=== PATIENT | male | born 1955 | race Caucasian/White ===

== ENCOUNTER 2020-10-29 15:14 | Outpatient (REF) | payer MEDICARE, MEDICAID, SELFPAY ==
[2020-10-29 16:32] LABS: MANUAL DIFF FLAG NO
[2020-10-29 16:40] LABS: Basophils Absolute Auto 0.1 X10*3/uL (0.0-0.2); Basophils Percent Auto 0.9 % (0-2); Eosinophils Absolute Auto 0.1 X10*3/uL (0.0-0.4); Eosinophils Percent Auto 1.1 % (0-4); Hematocrit 27.5 % (42-52); Hemoglobin 9.1 g/dl (14.0-18.0); Imm Gran Abs Auto 0.02 X10*3/uL (0.00-0.03); Imm Gran Pct Auto 0.3 % (0.0-0.4); Lymphocytes Absolute Auto 1.2 X10*3/uL (1.2-4.9); Lymphocytes Percent Auto 18.7 % (20-40); Mean Corpuscular HGB Conc 33.1 g/dl (31.0-36.0); Mean Corpuscular Hemoglobin 32.3 pg (27.0-33.0); Mean Corpuscular Volume 97.5 fL (80-98); Mean Platelet Volume 10.9 fL (9.4-12.4); Monocytes Absolute Auto 0.5 X10*3/uL (0.1-1.2); Monocytes Percent Auto 6.9 % (2-11); Neutrophils Absolute Auto 4.7 X10*3/uL (2.0-8.3); Neutrophils Percent Auto 72.1 % (45-73); Platelet Count 191 X10*3/uL (160-400); Red Blood Count 2.82 X10*6/uL (4.60-5.80); White Blood Count 6.5 X10*3/uL (4.8-10.8)
[2020-10-29 16:42] LABS: Appearance Urine CLEAR; Color Urine YELLOW; Glucose Urine UA NEG (NEG); Leukocyte Esterase Urine NEG (NEG); Nitrite Urine NEG (NEG); Specific Gravity - Urine 1.025 (1.005-1.025); Urine Blood 1+ (NEG); Urine Ketones NEG (NEG); Urine Protein 2+ MG/DL (NEG-TRACE)
[2020-10-29 16:53] LABS: Bacteria Urine TRACE /LPF; Squamous Epithelial Cell Urine TRACE /LPF; WBC Urine 0 /HPF (0-4)
[2020-10-29 17:09] LABS: Creatinine Urine 97.59 mg/dL; Protein/Creatinine Ratio, Ur 1.77 (<0.2); Total Protein Urine Random 173 mg/dL (<12)
[2020-10-29 17:11] LABS: Anion Gap 12 (12-20); Blood Urea Nitrogen 19 mg/dL (9-16); Calcium 7.7 mg/dL (8.4-10.2); Carbon Dioxide 23 mmol/L (22-29); Chloride 109 mmol/L (96-108); Estimated Glomerular Filt Rate 33; Phosphorus 3.4 mg/dL (2.7-4.5); Potassium 4.3 mmol/l (3.3-5.1); Sodium 140 mmol/L (135-145)
[2020-10-29 19:14] LABS: Renal w Reflex Lab Use Only Order verified
[2020-10-29 19:17] LABS: Albumin Level 3.2 g/dL (3.5-5.0)
== END 2020-10-29 15:15 | disposition home or self-care (01) ==
LOC: HO.LAB 15:14
PROVIDERS: PCP Internal Medicine; Visit Provider Internal Medicine Nephrology
DX: E11.22 Type 2 diabetes mellitus with diabetic chronic kidney disease (principal); I12.9 Hypertensive chronic kidney disease with stage 1 through stage 4 chronic kidney disease, or unspecified chronic kidney disease; N18.30 Chronic kidney disease, stage 3 unspecified; N17.9 Acute kidney failure, unspecified; R80.9 Proteinuria, unspecified; E78.5 Hyperlipidemia, unspecified; E11.21 Type 2 diabetes mellitus with diabetic nephropathy
CPT/HCPCS: 36415; 80051; 81001; 82040; 82310; 82565; 84100; 84156; 84520; 85025

== ENCOUNTER 2020-11-16 14:03 | Outpatient (REF) | payer MEDICARE, MEDICAID, SELFPAY ==
[2020-11-16 15:11] LABS: Estimated Average Glucose 100 mg/dL; Hemoglobin A1c % 5.1 %
[2020-11-16 15:23] LABS: Anion Gap 15 (12-20); Blood Urea Nitrogen 23 mg/dL (9-16); Carbon Dioxide 20 mmol/L (22-29); Chloride 107 mmol/L (96-108); Cholesterol 222 mg/dL; Estimated Glomerular Filt Rate 30; Glucose Fasting 92 mg/dL (60-99); HDL Cholesterol 44 mg/dL; LDL Cholesterol Calculated 143 mg/dl; Potassium 4.5 mmol/l (3.3-5.1); Sodium 137 mmol/L (135-145); Triglycerides 175 mg/dL
== END 2020-11-16 14:04 | disposition home or self-care (01) ==
LOC: HO.LAB 14:03
PROVIDERS: PCP Psychiatry & Neurology Neurology; Visit Provider Psychiatry & Neurology Neurology
DX: I63.9 Cerebral infarction, unspecified (principal)
CPT/HCPCS: 80051; 80061; 82565; 82947; 83036; 84520

== ENCOUNTER 2020-12-31 10:30 | Outpatient (REF) | payer MEDICARE, MEDICAID, SELFPAY ==
[2020-12-31 11:16] LABS: MANUAL DIFF FLAG NO
[2020-12-31 11:30] LABS: Basophils Absolute Auto 0.1 X10*3/uL (0.0-0.2); Basophils Percent Auto 1.3 % (0-2); Eosinophils Absolute Auto 0.2 X10*3/uL (0.0-0.4); Eosinophils Percent Auto 2.5 % (0-4); Hematocrit 28.1 % (42-52); Hemoglobin 9.2 g/dl (14.0-18.0); Imm Gran Abs Auto 0.02 X10*3/uL (0.00-0.03); Imm Gran Pct Auto 0.3 % (0.0-0.4); Lymphocytes Absolute Auto 1.7 X10*3/uL (1.2-4.9); Lymphocytes Percent Auto 26.1 % (20-40); Mean Corpuscular HGB Conc 32.7 g/dl (31.0-36.0); Mean Corpuscular Hemoglobin 30.9 pg (27.0-33.0); Mean Corpuscular Volume 94.3 fL (80-98); Mean Platelet Volume 10.8 fL (9.4-12.4); Monocytes Absolute Auto 0.4 X10*3/uL (0.1-1.2); Monocytes Percent Auto 6.4 % (2-11); Neutrophils Absolute Auto 4.1 X10*3/uL (2.0-8.3); Neutrophils Percent Auto 63.4 % (45-73); Platelet Count 218 X10*3/uL (160-400); Red Blood Count 2.98 X10*6/uL (4.60-5.80); Red Cell Distribution Width 13.6 % (11.0-16.0); White Blood Count 6.4 X10*3/uL (4.8-10.8)
[2020-12-31 12:06] LABS: Ferritin 262 ng/mL (20-250)
[2020-12-31 12:38] LABS: Vitamin B12 < 146 pg/mL (200-900)
== END 2020-12-31 10:31 | disposition home or self-care (01) ==
LOC: HO.HMGCLDS 10:30
PROVIDERS: PCP Internal Medicine; Visit Provider Internal Medicine
DX: D64.9 Anemia, unspecified (principal); Z00.00 Encounter for general adult medical examination without abnormal findings
CPT/HCPCS: 36415; 82607; 82728; 85025

== ENCOUNTER 2021-08-23 16:01 | Outpatient (REF) | payer MEDICARE, MEDICAID, SELFPAY ==
[2021-08-23 16:59] LABS: Hematocrit 34.5 % (42-52); Hemoglobin 11.2 g/dl (14.0-18.0); Mean Corpuscular HGB Conc 32.5 g/dl (31.0-36.0); Mean Corpuscular Volume 92.5 fL (80-98); Mean Platelet Volume 10.9 fL (9.4-12.4); Platelet Count 167 X10*3/uL (160-400); Red Blood Count 3.73 X10*6/uL (4.60-5.80); Red Cell Distribution Width 14.5 % (11.0-16.0); White Blood Count 8.9 X10*3/uL (4.8-10.8)
[2021-08-23 17:28] LABS: Anion Gap 11 (12-20); Blood Urea Nitrogen 19 mg/dL (9-16); Calcium 8.5 mg/dL (8.4-10.2); Carbon Dioxide 24 mmol/L (22-29); Chloride 113 mmol/L (96-108); Estimated Glomerular Filt Rate 31; Potassium 4.5 mmol/L (3.3-5.1); Sodium 143 mmol/L (135-145)
== END 2021-08-23 16:02 | disposition home or self-care (01) ==
LOC: HO.LAB 16:01
PROVIDERS: PCP Internal Medicine; Visit Provider Internal Medicine Nephrology
DX: I12.9 Hypertensive chronic kidney disease with stage 1 through stage 4 chronic kidney disease, or unspecified chronic kidney disease (principal); N18.32 Chronic kidney disease, stage 3b; N25.81 Secondary hyperparathyroidism of renal origin; E55.9 Vitamin D deficiency, unspecified
CPT/HCPCS: 36415; 80051; 82310; 82565; 84520; 85027

== ENCOUNTER 2021-11-24 15:09 | Outpatient (REF) | payer MEDICARE, MEDICAID, SELFPAY ==
[2021-11-24 16:07] LABS: Blood Urea Nitrogen 22 mg/dL (9-16); Calcium 8.9 mg/dL (8.4-10.2); Estimated Glomerular Filt Rate 29
[2021-11-24 16:26] LABS: Anion Gap 11 (12-20); Carbon Dioxide 20 mmol/L (22-29); Chloride 115 mmol/L (96-108); Potassium 4.4 mmol/L (3.3-5.1); Sodium 142 mmol/L (135-145)
== END 2021-11-24 15:10 | disposition home or self-care (01) ==
LOC: HO.LAB 15:09
PROVIDERS: Absent Provider Internal Medicine Nephrology; PCP Internal Medicine; Visit Provider Internal Medicine
DX: I12.9 Hypertensive chronic kidney disease with stage 1 through stage 4 chronic kidney disease, or unspecified chronic kidney disease (principal); N18.32 Chronic kidney disease, stage 3b; R80.8 Other proteinuria
CPT/HCPCS: 36415; 80051; 82310; 82565; 84520

== ENCOUNTER 2022-05-02 11:56 | Outpatient (REF) | payer MEDICARE, MEDICAID, SELFPAY ==
[2022-05-02 13:36] LABS: MANUAL DIFF FLAG NO
[2022-05-02 13:40] LABS: Basophils Absolute Auto 0.1 X10*3/uL (0.0-0.2); Basophils Percent Auto 0.8 % (0-2); Eosinophils Absolute Auto 0.2 X10*3/uL (0.0-0.4); Eosinophils Percent Auto 3.5 % (0-4); Hematocrit 34.9 % (42.0-52.0); Hemoglobin 11.3 g/dl (14.0-18.0); Imm Gran Abs Auto 0.01 X10*3/uL (0.00-0.03); Imm Gran Pct Auto 0.2 % (0.0-0.4); Lymphocytes Absolute Auto 1.5 X10*3/uL (1.2-4.9); Lymphocytes Percent Auto 23.2 % (20-40); Mean Corpuscular HGB Conc 32.4 g/dl (31.0-36.0); Mean Corpuscular Hemoglobin 31.3 pg (27.0-33.0); Mean Corpuscular Volume 96.7 fL (80.0-98.0); Mean Platelet Volume 11.5 fL (9.4-12.4); Monocytes Absolute Auto 0.5 X10*3/uL (0.1-1.2); Monocytes Percent Auto 7.4 % (2-11); Neutrophils Absolute Auto 4.3 x10*3/uL (2.0-8.3); Neutrophils Percent Auto 64.9 % (45-73); Platelet Count 192 X10*3/uL (160-400); Red Blood Count 3.61 X10*6/uL (4.60-5.80); Red Cell Distribution Width 13.4 % (11.0-16.0); White Blood Count 6.6 X10*3/uL (4.8-10.8)
[2022-05-02 13:55] LABS: Alanine Aminotransferase 10 U/L (0-40); Albumin Level 3.8 g/dL (3.5-5.0); Alkaline Phosphatase 80 U/L (39-117); Anion Gap 13 (12-20); Aspartate Amino Transferase 10 U/L (5-37); Bilirubin Total 0.3 mg/dL (0.0-1.0); Blood Urea Nitrogen 46 mg/dL (9-16); Calcium 8.7 mg/dL (8.4-10.2); Carbon Dioxide 21 mmol/L (22-29); Chloride 112 mmol/L (96-108); Estimated Glomerular Filt Rate 22; Glucose Random 140 mg/dL (60-115); Potassium 5.5 mmol/L (3.3-5.1); Sodium 140 mmol/L (135-145); Total Protein 6.4 g/dL (6.5-8.0)
[2022-05-02 14:05] LABS: Estimated Average Glucose 103 mg/dL; Hemoglobin A1c % 5.2 %
== END 2022-05-02 11:57 | disposition home or self-care (01) ==
LOC: HO.HMGCLDS 11:56
PROVIDERS: PCP Internal Medicine; Visit Provider Internal Medicine
DX: E78.9 Disorder of lipoprotein metabolism, unspecified (principal); N18.9 Chronic kidney disease, unspecified; R79.89 Other specified abnormal findings of blood chemistry; D64.9 Anemia, unspecified; E11.21 Type 2 diabetes mellitus with diabetic nephropathy
CPT/HCPCS: 36415; 80053; 83036; 85025

== ENCOUNTER 2022-06-20 15:54 | Outpatient (REF) | payer MEDICARE, MEDICAID, SELFPAY ==
[2022-06-20 16:53] LABS: Estimated Average Glucose 105 mg/dL; Hemoglobin A1c % 5.3 %
[2022-06-20 17:15] LABS: Alanine Aminotransferase 10 U/L (0-40); Albumin Level 3.9 g/dL (3.5-5.0); Alkaline Phosphatase 73 U/L (39-117); Anion Gap 15 (12-20); Aspartate Amino Transferase 9 U/L (5-37); Bilirubin Total 0.2 mg/dL (0.0-1.0); Blood Urea Nitrogen 36 mg/dL (9-16); Calcium 8.5 mg/dL (8.4-10.2); Carbon Dioxide 21 mmol/L (22-29); Chloride 112 mmol/L (96-108); Estimated Glomerular Filt Rate 22; Glucose Random 118 mg/dL (60-115); Potassium 5.8 mmol/L (3.3-5.1); Sodium 142 mmol/L (135-145); Total Protein 6.6 g/dL (6.5-8.0)
[2022-06-21 07:33] LABS: LDL Cholesterol Direct 109 mg/dL (<100)
== END 2022-06-20 15:55 | disposition home or self-care (01) ==
LOC: HO.LAB 15:54
PROVIDERS: PCP Internal Medicine; Visit Provider Internal Medicine Nephrology
DX: I12.9 Hypertensive chronic kidney disease with stage 1 through stage 4 chronic kidney disease, or unspecified chronic kidney disease (principal); N18.32 Chronic kidney disease, stage 3b; E55.9 Vitamin D deficiency, unspecified; E78.9 Disorder of lipoprotein metabolism, unspecified
CPT/HCPCS: 36415; 80053; 83036; 83721

== ENCOUNTER 2022-09-20 12:46 | Outpatient (REF) | payer MEDICARE, MEDICAID, SELFPAY ==
[2022-09-20 13:04] LABS: MANUAL DIFF FLAG NO
[2022-09-20 13:29] LABS: Basophils Absolute Auto 0.1 X10*3/uL (0.0-0.2); Basophils Percent Auto 0.6 % (0-2); Eosinophils Absolute Auto 0.2 X10*3/uL (0.0-0.4); Eosinophils Percent Auto 1.9 % (0-4); Hematocrit 34.8 % (42.0-52.0); Hemoglobin 11.3 g/dl (14.0-18.0); Imm Gran Abs Auto 0.04 X10*3/uL (0.00-0.03); Imm Gran Pct Auto 0.4 % (0.0-0.4); Lymphocytes Absolute Auto 1.4 X10*3/uL (1.2-4.9); Lymphocytes Percent Auto 13.8 % (20-40); Mean Corpuscular HGB Conc 32.5 g/dl (31.0-36.0); Mean Corpuscular Hemoglobin 32.2 pg (27.0-33.0); Mean Corpuscular Volume 99.1 fL (80.0-98.0); Mean Platelet Volume 10.7 fL (9.4-12.4); Monocytes Absolute Auto 0.6 X10*3/uL (0.1-1.2); Monocytes Percent Auto 6.2 % (2-11); Neutrophils Absolute Auto 7.8 x10*3/uL (2.0-8.3); Neutrophils Percent Auto 77.1 % (45-73); Platelet Count 168 X10*3/uL (160-400); Red Blood Count 3.51 X10*6/uL (4.60-5.80); Red Cell Distribution Width 14.1 % (11.0-16.0); White Blood Count 10.1 X10*3/uL (4.8-10.8)
[2022-09-20 13:54] LABS: Anion Gap 17 (12-20); Blood Urea Nitrogen 38 mg/dL (9-16); Calcium 8.5 mg/dL (8.4-10.2); Carbon Dioxide 18 mmol/L (22-29); Chloride 112 mmol/L (96-108); Estimated Glomerular Filt Rate 24; Iron 50 mcg/dL (45-160); Percent Iron Saturation 21 % (15-50); Sodium 142 mmol/L (135-145); Total Iron Binding Capacity 233 mcg/dL (228-428); Unsaturated Iron Binding 183 ug/dL
[2022-09-20 14:15] LABS: Ferritin 447 ng/mL (20-250)
== END 2022-09-20 12:47 | disposition home or self-care (01) ==
LOC: HO.LAB 12:46
PROVIDERS: PCP Internal Medicine; Visit Provider Internal Medicine Nephrology
DX: N18.4 Chronic kidney disease, stage 4 (severe) (principal); D63.1 Anemia in chronic kidney disease
CPT/HCPCS: 36415; 80051; 82310; 82565; 82728; 83540; 84520; 85025

== ENCOUNTER 2022-12-19 09:35 | Outpatient (REF) | payer MEDICARE, MEDICAID, SELFPAY ==
[2022-12-19 10:33] LABS: Basophils Absolute Auto 0.1 X10*3/uL (0.0-0.2); Basophils Percent Auto 0.8 % (0-2); Eosinophils Absolute Auto 0.2 X10*3/uL (0.0-0.4); Eosinophils Percent Auto 2.8 % (0-4); Hematocrit 33.5 % (42.0-52.0); Imm Gran Abs Auto 0.01 X10*3/uL (0.00-0.03); Imm Gran Pct Auto 0.1 % (0.0-0.4); Lymphocytes Absolute Auto 1.8 X10*3/uL (1.2-4.9); Lymphocytes Percent Auto 22.6 % (20-40); MANUAL DIFF FLAG SCAN; Mean Corpuscular HGB Conc 32.8 g/dl (31.0-36.0); Mean Corpuscular Hemoglobin 30.9 pg (27.0-33.0); Mean Corpuscular Volume 94.1 fL (80.0-98.0); Monocytes Absolute Auto 0.6 X10*3/uL (0.1-1.2); Monocytes Percent Auto 7.1 % (2-11); Neutrophils Absolute Auto 5.3 x10*3/uL (2.0-8.3); Neutrophils Percent Auto 66.6 % (45-73); PLT CLUMP 1; Red Blood Count 3.56 X10*6/uL (4.60-5.80); Red Cell Distribution Width 13.1 % (11.0-16.0); SCAN SMEAR FLAG 1
[2022-12-19 10:53] LABS: Platelet Count 156 X10*3/uL (160-400); White Blood Count 7.9 X10*3/uL (4.8-10.8)
[2022-12-19 10:54] LABS: SLIDE REVIEW VERIFIED
[2022-12-19 11:18] LABS: Anion Gap 14 (12-20); Blood Urea Nitrogen 34 mg/dL (9-16); Calcium 8.3 mg/dL (8.4-10.2); Carbon Dioxide 19 mmol/L (22-29); Chloride 114 mmol/L (96-108); Estimated Glomerular Filt Rate 24; Iron 63 mcg/dL (45-160); Percent Iron Saturation 33 % (15-50); Phosphorus 3.1 mg/dL (2.7-4.5); Potassium 4.1 mmol/L (3.3-5.1); Sodium 143 mmol/L (135-145); Total Iron Binding Capacity 189 mcg/dL (228-428); Unsaturated Iron Binding 126 ug/dL; Uric Acid 5.8 mg/dL (3.4-7.0)
[2022-12-19 11:21] LABS: Vitamin D 25-OH Total 27.8 ng/mL (>30)
[2022-12-20 17:44] LABS: Calcium (PTHI) 8.4 mg/dL (8.6-10.3); PTHI 257 pg/mL (16-77)
== END 2022-12-19 09:36 | disposition home or self-care (01) ==
LOC: HO.LAB 09:35
PROVIDERS: PCP Internal Medicine; Visit Provider Internal Medicine Nephrology
DX: N18.4 Chronic kidney disease, stage 4 (severe) (principal)
CPT/HCPCS: 36415; 80051; 82306; 82310; 82565; 83540; 83970; 84100; 84520; 84550; 85025

== ENCOUNTER 2023-06-29 15:03 | Outpatient (REF) | payer MEDICARE, MEDICAID, SELFPAY ==
[2023-06-29 15:35] LABS: MANUAL DIFF FLAG NO
[2023-06-29 16:37] LABS: Basophils Absolute Auto 0.1 X10*3/uL (0.0-0.2); Basophils Percent Auto 0.8 % (0-2); Eosinophils Absolute Auto 0.2 X10*3/uL (0.0-0.4); Eosinophils Percent Auto 2.6 % (0-4); Hematocrit 36.2 % (42.0-52.0); Imm Gran Abs Auto 0.02 X10*3/uL (0.00-0.03); Imm Gran Pct Auto 0.3 % (0.0-0.4); Lymphocytes Absolute Auto 1.1 X10*3/uL (1.2-4.9); Lymphocytes Percent Auto 16.5 % (20-40); Mean Corpuscular HGB Conc 33.1 g/dl (31.0-36.0); Mean Corpuscular Hemoglobin 30.8 pg (27.0-33.0); Mean Corpuscular Volume 93.1 fL (80.0-98.0); Mean Platelet Volume 11.4 fL (9.4-12.4); Monocytes Absolute Auto 0.6 X10*3/uL (0.1-1.2); Monocytes Percent Auto 9.4 % (2-11); Neutrophils Absolute Auto 4.7 x10*3/uL (2.0-8.3); Neutrophils Percent Auto 70.4 % (45-73); Platelet Count 205 X10*3/uL (160-400); Red Blood Count 3.89 X10*6/uL (4.60-5.80); Red Cell Distribution Width 13.4 % (11.0-16.0); White Blood Count 6.6 X10*3/uL (4.8-10.8)
[2023-06-29 17:16] LABS: Alanine Aminotransferase 5 U/L (0-40); Albumin Level 3.8 g/dL (3.5-5.0); Alkaline Phosphatase 87 U/L (39-117); Aspartate Amino Transferase 12 U/L (5-37); Bilirubin Direct < 0.2 mg/dL (0.0-0.5); Bilirubin Total 0.2 mg/dL (0.0-1.0); Cholesterol 235 mg/dL; HDL Cholesterol 29 mg/dL; LDL Cholesterol Calculated 151 mg/dl; Total Protein 7.2 g/dL (6.5-8.0); Triglycerides 277 mg/dL
[2023-06-29 17:17] LABS: Anion Gap 12 (12-20); Blood Urea Nitrogen 23 mg/dL (9-16); Carbon Dioxide 20 mmol/L (22-29); Chloride 112 mmol/L (96-108); Estimated Glomerular Filt Rate 24; Iron 70 mcg/dL (45-160); Percent Iron Saturation 38 % (15-50); Potassium 4.6 mmol/L (3.3-5.1); Sodium 139 mmol/L (135-145); Total Iron Binding Capacity 185 mcg/dL (228-428); Unsaturated Iron Binding 115 ug/dL
[2023-06-30 03:22] LABS: Estimated Average Glucose 100 mg/dL; Hemoglobin A1c % 5.1 %
== END 2023-06-29 15:04 | disposition home or self-care (01) ==
LOC: HO.LAB 15:03
PROVIDERS: Internal Medicine; Visit Provider Internal Medicine Nephrology
DX: I12.9 Hypertensive chronic kidney disease with stage 1 through stage 4 chronic kidney disease, or unspecified chronic kidney disease (principal); E13.22 Other specified diabetes mellitus with diabetic chronic kidney disease; N18.4 Chronic kidney disease, stage 4 (severe); D63.1 Anemia in chronic kidney disease; E78.9 Disorder of lipoprotein metabolism, unspecified
CPT/HCPCS: 36415; 80051; 80061; 80076; 82310; 82565; 83036; 83540; 84520; 85025

== ENCOUNTER 2023-10-30 11:22 | Outpatient (REF) | payer MEDICARE, MEDICAID, SELFPAY ==
[2023-10-30 11:40] LABS: MANUAL DIFF FLAG NO
[2023-10-30 11:47] LABS: Basophils Absolute Auto 0.1 X10*3/uL (0.0-0.2); Basophils Percent Auto 0.8 % (0-2); Eosinophils Absolute Auto 0.2 X10*3/uL (0.0-0.4); Eosinophils Percent Auto 3.4 % (0-4); Hematocrit 36.7 % (42.0-52.0); Hemoglobin 11.8 g/dl (14.0-18.0); Imm Gran Abs Auto 0.02 X10*3/uL (0.00-0.03); Imm Gran Pct Auto 0.3 % (0.0-0.4); Lymphocytes Absolute Auto 1.6 X10*3/uL (1.2-4.9); Lymphocytes Percent Auto 21.9 % (20-40); Mean Corpuscular HGB Conc 32.2 g/dl (31.0-36.0); Mean Corpuscular Hemoglobin 30.8 pg (27.0-33.0); Mean Corpuscular Volume 95.8 fL (80.0-98.0); Mean Platelet Volume 10.4 fL (9.4-12.4); Monocytes Absolute Auto 0.5 X10*3/uL (0.1-1.2); Monocytes Percent Auto 6.6 % (2-11); Neutrophils Absolute Auto 4.8 x10*3/uL (2.0-8.3); Platelet Count 220 X10*3/uL (160-400); Red Blood Count 3.83 X10*6/uL (4.60-5.80); Red Cell Distribution Width 12.9 % (11.0-16.0); White Blood Count 7.1 X10*3/uL (4.8-10.8)
[2023-10-30 12:03] LABS: Parathyroid Hormone Intact 229.7 pg/mL (8.7-77.1)
[2023-10-30 12:14] LABS: Anion Gap 11 (12-20); Blood Urea Nitrogen 26 mg/dL (9-16); Calcium 8.6 mg/dL (8.4-10.2); Carbon Dioxide 21 mmol/L (22-29); Chloride 113 mmol/L (96-108); Estimated Glomerular Filt Rate 25; Iron 59 mcg/dL (45-160); Percent Iron Saturation 33 % (15-50); Potassium 4.6 mmol/L (3.3-5.1); Sodium 140 mmol/L (135-145); Total Iron Binding Capacity 180 mcg/dL (228-428); Unsaturated Iron Binding 121 ug/dL
[2023-10-30 12:17] LABS: Ferritin 733 ng/mL (20-250)
== END 2023-10-30 11:23 | disposition home or self-care (01) ==
LOC: HO.LAB 11:22
PROVIDERS: PCP Internal Medicine; Visit Provider Internal Medicine Nephrology
DX: N18.4 Chronic kidney disease, stage 4 (severe) (principal)
CPT/HCPCS: 36415; 80051; 82310; 82565; 82728; 83540; 83970; 84520; 85025

== ENCOUNTER 2023-10-31 13:33 | Outpatient (AMB) | payer MEDICARE, SELFPAY ==
--- NOTE | 2023-10-31 13:49 | HO.NEPHOV_ITS ---
HPI HPI Comments History of Present Illness Details I had the privilege of seeing Adalberto in follow-up of his chronic kidney disease, hypertension, proteinuria as well as secondary hyperparathyroidism. He has been compliant with potassium lowering medications. His serum creatinine has been fairly stable. He tries to minimize sodium intake in the diet. His blood pressure has been good at home. He denies any nausea, vomiting, diarrhea, chest pain, shortness of breath, proximal nocturnal dyspnea, orthopnea, pedal edema. He has no urinary symptoms . He has no orthostasis. He has not had any medication changes or hospitalizations recently. [facility] Medical History CVA (cerebral vascular accident) Diabetes Renal insufficiency Surgical History H/O eye surgery Family History Father Lung cancer Maternal Grandmother Ovarian cancer Social History Housing: House Alcohol intake: former Patient Tobacco Use Status: Current everyday Tobacco user Tobacco use type: Cigarette e-Cigarette/Vaping Use: Never Used Substance Use Type: Marijuana service: No Current occupational status: retired Cognitive needs: No Hearing needs: No Vision needs: No Vital Signs 10/31/23 13:52 10/31/23 14:30 Height 5 ft 9 in Weight 143 lb 8 oz BMI 21.2 BP 160/70 H 120/70 Blood Pressure Location Rt brachial Position Sitting Pulse 94 Pulse Source Pulse Oximeter Pulse Oximetry (%) 98 Oxygen Delivery Method Room Air Physical Exam Vital Signs: Last Vital Signs Pulse 94 10/31/23 13:52 BP 120/70 10/31/23 14:30 Pulse Ox 98 10/31/23 13:52 Oxygen Delivery Method Room Air 10/31/23 13:52 BMI result Body Mass Index 21.2 Const General: comfortable and no acute distress Orientation/consciousness: patient oriented x3 HEENT Head: Yes normocephalic Mouth: Normal oral and palatal mucosa present Eyes EOM: EOMs intact bilaterally Neck Neck: Yes supple Resp Auscultation: clear to auscultation bilaterally Cardio Jugular venous distension: no JVD Rate: regular rate GI Palpation (GI): Soft to palpation Auscultation: normal bowel sounds General: Yes no CVA tenderness Back/Spine/Pelvis Back: no CVA tenderness Skin General skin exam: no rashes or lesions noted Neuro General: patient oriented x3 and moves all extremities Extrem General: Yes no pedal edema Assessment & Plan Assessment & Plan (1) Hyperkalemia: Code(s): E87.5 - Hyperkalemia (2) CKD (chronic kidney disease) stage 4, GFR 15-29 ml/min: Code(s): N18.4 - Chronic kidney disease, stage 4 (severe) (3) Hypertension, essential: Code(s): I10 - Essential (primary) hypertension (4) Secondary hyperparathyroidism: Code(s): N25.81 - Secondary hyperparathyroidism of renal origin (5) Anemia in chronic kidney disease: Code(s): N18.9 - Chronic kidney disease, unspecified; D63.1 - Anemia in chronic kidney disease Qualifiers: Chronic kidney disease stage: stage 4 (severe) Qualified Code(s): N18.4 - Chronic kidney disease, stage 4 (severe); D63.1 - Anemia in chronic kidney disease Plan 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 He is not on any Iker inhibitor due to recurrent FLOR and hyperkalemia in the past. He avoids nonsteroidal anti-inflammatory medications and maintain good hydration. He can continue taking his Kionex 15 g 2 times a week. His ultrasounds in the past and been unremarkable. He has tolerated statins. Can continue with nifedipine 120 mg daily. I asked him to increase his vitamin-D to 2000 units daily. Does not need any Procrit now. I did not make any other medication changes today. He will be a candidate for [employer] / [employer] if his insurance permits. We agreed to discuss about it to the next visit. All his questions and concerns were addressed. Time spent for retrieving data, documentation and patient encounter 27 minutes. Follow-up given. Medications: New sodium polystyrene sulfonate 15 grams orally twice a week; 30 days 150 grams 3RF Coding Level of Care Code Est Pt Level 4 (57137) Diagnoses Hyperkalemia E87.5 CKD (chronic kidney disease) stage 4, GFR 15-29 ml/min N18.4 Hypertension, essential I10 Secondary hyperparathyroidism N25.81 Anemia in stage 4 chronic kidney disease N18.4; D63.1 Chronic kidney disease stage: stage 4 (severe) Results Reviewed Nephrology Results: Hgb 11.8 g/dl (14.0-18.0) L 10/30/23 WBC 7.1 X10*3/uL (4.8-10.8) 10/30/23 Plt Count 220 X10*3/uL (160-400) 10/30/23 Sodium 140 mmol/L (135-145) 10/30/23 Potassium 4.6 mmol/L (3.3-5.1) 10/30/23 Chloride 113 mmol/L (96-108) H 10/30/23 Carbon Dioxide 21 mmol/L (22-29) L 10/30/23 BUN 26 mg/dL (9-16) H 10/30/23 Creatinine 2.57 mg/dL (0.5-1.4) H 10/30/23 Calcium 8.6 mg/dL (8.4-10.2) 10/30/23 Phosphorus 3.1 mg/dL (2.7-4.5) 12/19/22 PTH Intact 229.7 pg/mL (8.7-77.1) H 10/30/23
[2023-10-31 13:52] VITALS: BP 160/70; PULSE 94; O2SAT 98; BMI 21.2
[2023-10-31 14:30] VITALS: BP 120/70
== END 2023-10-31 14:33 | disposition home or self-care (01) ==
PROVIDERS: PCP Internal Medicine; Visit Provider Internal Medicine Nephrology
DX: I12.9 Hypertensive chronic kidney disease with stage 1 through stage 4 chronic kidney disease, or unspecified chronic kidney disease (principal); N18.4 Chronic kidney disease, stage 4 (severe); N25.81 Secondary hyperparathyroidism of renal origin; E87.5 Hyperkalemia; D63.1 Anemia in chronic kidney disease
CPT/HCPCS: 99214

== ENCOUNTER → 2023-10-31 13:33 | Outpatient (BNVA) | payer MEDICARE, OTHER, SELFPAY | PROVIDERS: PCP Internal Medicine; Visit Provider Internal Medicine Nephrology | DX: I12.9 Hypertensive chronic kidney disease with stage 1 through stage 4 chronic kidney disease, or unspecified chronic kidney disease (principal); N18.4 Chronic kidney disease, stage 4 (severe); D63.1 Anemia in chronic kidney disease; N25.81 Secondary hyperparathyroidism of renal origin; E87.5 Hyperkalemia | CPT/HCPCS: 99212 ==

== ENCOUNTER 2024-02-04 15:00 | Outpatient (REF) | payer MEDICARE, SELFPAY ==
[2024-02-04 15:35] LABS: MANUAL DIFF FLAG NO
[2024-02-04 15:55] LABS: Basophils Absolute Auto 0.1 X10*3/uL (0.0-0.2); Basophils Percent Auto 0.9 % (0-2); Eosinophils Absolute Auto 0.2 X10*3/uL (0.0-0.4); Hematocrit 35.1 % (42.0-52.0); Hemoglobin 11.3 g/dl (14.0-18.0); Imm Gran Abs Auto 0.02 X10*3/uL (0.00-0.03); Imm Gran Pct Auto 0.3 % (0.0-0.4); Lymphocytes Absolute Auto 1.5 X10*3/uL (1.2-4.9); Mean Corpuscular HGB Conc 32.2 g/dl (31.0-36.0); Mean Corpuscular Hemoglobin 30.6 pg (27.0-33.0); Mean Corpuscular Volume 95.1 fL (80.0-98.0); Mean Platelet Volume 10.8 fL (9.4-12.4); Monocytes Absolute Auto 0.4 X10*3/uL (0.1-1.2); Monocytes Percent Auto 6.3 % (2-11); Neutrophils Absolute Auto 4.8 x10*3/uL (2.0-8.3); Neutrophils Percent Auto 68.5 % (45-73); Platelet Count 204 X10*3/uL (160-400); Red Blood Count 3.69 X10*6/uL (4.60-5.80); Red Cell Distribution Width 13.4 % (11.0-16.0)
[2024-02-04 16:48] LABS: Parathyroid Hormone Intact 268.1 pg/mL (8.7-77.1)
[2024-02-04 16:51] LABS: Anion Gap 12 (12-20); Blood Urea Nitrogen 30 mg/dL (9-16); Calcium 8.5 mg/dL (8.4-10.2); Carbon Dioxide 21 mmol/L (22-29); Chloride 114 mmol/L (96-108); Estimated Glomerular Filt Rate 27; Iron 70 mcg/dL (45-160); Percent Iron Saturation 37 % (15-50); Phosphorus 2.8 mg/dL (2.7-4.5); Potassium 4.7 mmol/L (3.3-5.1); Sodium 142 mmol/L (135-145); Total Iron Binding Capacity 187 mcg/dL (228-428); Unsaturated Iron Binding 117 ug/dL
[2024-02-04 17:08] LABS: Ferritin 600 ng/mL (20-250); Vitamin D 25-OH Total 34.9 ng/mL (>30)
== END 2024-02-04 15:01 | disposition home or self-care (01) ==
LOC: HO.LAB 15:00
PROVIDERS: PCP Internal Medicine; Visit Provider Internal Medicine Nephrology
DX: N18.4 Chronic kidney disease, stage 4 (severe) (principal); D63.1 Anemia in chronic kidney disease; N25.81 Secondary hyperparathyroidism of renal origin
CPT/HCPCS: 36415; 80051; 82306; 82310; 82565; 82728; 83540; 83970; 84100; 84520; 85025

== ENCOUNTER 2024-02-06 13:42 | Outpatient (AMB) | payer MEDICARE, SELFPAY ==
[2024-02-06 13:44] VITALS: BP 130/60; PULSE 84; O2SAT 99; BMI 20.9
--- NOTE | 2024-02-06 13:44 | HO.NEPHOV_ITS ---
HPI HPI Comments History of Present Illness Details I had the privilege of seeing Adalberto in follow-up of his chronic kidney disease, hypertension, proteinuria as well as secondary hyperparathyroidism. He has been compliant with potassium lowering medications. His serum creatinine has been fairly stable. He tries to minimize sodium intake in the diet. His blood pressure has been good at home. He denies any nausea, vomiting, diarrhea, chest pain, shortness of breath, proximal nocturnal dyspnea, orthopnea, pedal edema. He has no urinary symptoms . He has no orthostasis. He has not had any medication changes or hospitalizations recently. [facility] Medical History CVA (cerebral vascular accident) Diabetes Renal insufficiency Surgical History H/O eye surgery Family History Father Lung cancer Maternal Grandmother Ovarian cancer Social History Housing: House Alcohol intake: former Patient Tobacco Use Status: Current everyday Tobacco user Tobacco use type: Cigarette e-Cigarette/Vaping Use: Never Used Substance Use Type: Marijuana service: No Current occupational status: retired Cognitive needs: No Hearing needs: No Vision needs: No Vital Signs 02/06/24 13:44 Height 5 ft 9 in Weight 141 lb 8 oz BMI 20.9 BP 130/60 Blood Pressure Location Rt brachial Position Sitting Pulse 84 Pulse Source Pulse Oximeter Pulse Oximetry (%) 99 Oxygen Delivery Method Room Air Physical Exam Vital Signs: Last Vital Signs Pulse 84 02/06/24 13:44 BP 158/60 H 02/06/24 13:44 Pulse Ox 99 02/06/24 13:44 Oxygen Delivery Method Room Air 02/06/24 13:44 BMI result Body Mass Index 20.9 Const General: comfortable and no acute distress Orientation/consciousness: patient oriented x3 HEENT Head: Yes normocephalic Mouth: Normal oral and palatal mucosa present Eyes EOM: EOMs intact bilaterally Neck Neck: Yes supple Resp Auscultation: clear to auscultation bilaterally Cardio Jugular venous distension: no JVD Rate: regular rate GI Palpation (GI): Soft to palpation Auscultation: normal bowel sounds General: Yes no CVA tenderness Back/Spine/Pelvis Back: no CVA tenderness Skin General skin exam: no rashes or lesions noted Neuro General: patient oriented x3 and moves all extremities Extrem General: Yes no pedal edema Assessment & Plan Assessment & Plan (1) CKD (chronic kidney disease) stage 4, GFR 15-29 ml/min: Code(s): N18.4 - Chronic kidney disease, stage 4 (severe) (2) Hyperkalemia: Code(s): E87.5 - Hyperkalemia (3) Secondary hyperparathyroidism: Code(s): N25.81 - Secondary hyperparathyroidism of renal origin (4) Anemia in chronic kidney disease: Code(s): N18.9 - Chronic kidney disease, unspecified; D63.1 - Anemia in chronic kidney disease Qualifiers: Chronic kidney disease stage: stage 4 (severe) Qualified Code(s): N18.4 - Chronic kidney disease, stage 4 (severe); D63.1 - Anemia in chronic kidney disease Plan 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 He is not on any Iker inhibitor due to recurrent FLOR and hyperkalemia in the past. He avoids nonsteroidal anti-inflammatory medications and maintain good hydration. He can continue taking his Kionex 15 g every other day. His ultrasounds in the past and been unremarkable. He has tolerated statins. Can continue with nifedipine 120 mg daily. I started him on calcitriol 0.25 mch every other day.. Does not need any Procrit now. I did not make any other medication changes today. He will be a candidate for [employer] / [employer] if his insurance permits. We agreed to discuss about it to the next visit. All his questions and concerns were addressed. Orders: Orders Creatinine Today D63.1 - Anemia in chronic kidney disease, E87.5 - Hyperkalemia, N18.4 - Chronic kidney disease, stage 4 (severe), N18.9 - Chronic kidney disease, unspecified, N25.81 - Secondary hyperparathyroidism of renal origin Parathyroid Hormone Intact 3 Months D63.1 - Anemia in chronic kidney disease, E87.5 - Hyperkalemia, N18.4 - Chronic kidney disease, stage 4 (severe), N18.9 - Chronic kidney disease, unspecified, N25.81 - Secondary hyperparathyroidism of renal origin Complete Blood Count Auto Diff 3 Months D63.1 - Anemia in chronic kidney disease, E87.5 - Hyperkalemia, N18.4 - Chronic kidney disease, stage 4 (severe), N18.9 - Chronic kidney disease, unspecified, N25.81 - Secondary hyperparathyroidism of renal origin Blood Urea Nitrogen 3 Months D63.1 - Anemia in chronic kidney disease, E87.5 - Hyperkalemia, N18.4 - Chronic kidney disease, stage 4 (severe), N18.9 - Chronic kidney disease, unspecified, N25.81 - Secondary hyperparathyroidism of renal origin Electrolytes 3 Months D63.1 - Anemia in chronic kidney disease, E87.5 - Hyperkalemia, N18.4 - Chronic kidney disease, stage 4 (severe), N18.9 - Chronic kidney disease, unspecified, N25.81 - Secondary hyperparathyroidism of renal origin Calcium 3 Months D63.1 - Anemia in chronic kidney disease, E87.5 - Hyperkalemia, N18.4 - Chronic kidney disease, stage 4 (severe), N18.9 - Chronic kidney disease, unspecified, N25.81 - Secondary hyperparathyroidism of renal origin Phosphorus 3 Months D63.1 - Anemia in chronic kidney disease, E87.5 - Hyperkalemia, N18.4 - Chronic kidney disease, stage 4 (severe), N18.9 - Chronic kidney disease, unspecified, N25.81 - Secondary hyperparathyroidism of renal origin Medications: New calcitriol a 0.25 mcg PO 3XW 13 caps 5RF 30 days sodium polystyrene sulfonate 15 grams PO Q OTHER DAY 453.6 grams 4RF 90 days Discontinued sodium polystyrene sulfonate Discontinued Reason: Doctor's Order 15 grams orally twice a week; 30 days 150 grams 3RF Coding Level of Care Code Est Pt Level 4 (82568) Diagnoses CKD (chronic kidney disease) stage 4, GFR 15-29 ml/min N18.4 Hyperkalemia E87.5 Secondary hyperparathyroidism N25.81 Anemia in stage 4 chronic kidney disease N18.4; D63.1 Chronic kidney disease stage: stage 4 (severe) Results Reviewed Nephrology Results: Hgb 11.3 g/dl (14.0-18.0) L 02/04/24 WBC 7.0 X10*3/uL (4.8-10.8) 24 Plt Count 204 X10*3/uL (160-400) 02/04/24 Sodium 142 mmol/L (135-145) 02/04/24 Potassium 4.7 mmol/L (3.3-5.1) 02/04/24 Chloride 114 mmol/L (96-108) H 02/04/24 Carbon Dioxide 21 mmol/L (22-29) L 02/04/24 BUN 30 mg/dL (9-16) H 02/04/24 Creatinine 2.38 mg/dL (0.5-1.4) H 02/04/24 Calcium 8.5 mg/dL (8.4-10.2) 02/04/24 Phosphorus 2.8 mg/dL (2.7-4.5) 02/04/24 PTH Intact 268.1 pg/mL (8.7-77.1) H 02/04/24
== END 2024-02-06 14:26 | disposition home or self-care (01) ==
PROVIDERS: PCP Internal Medicine; Visit Provider Internal Medicine Nephrology
DX: N18.4 Chronic kidney disease, stage 4 (severe) (principal); E87.5 Hyperkalemia; N25.81 Secondary hyperparathyroidism of renal origin; D63.1 Anemia in chronic kidney disease
CPT/HCPCS: 99214

== ENCOUNTER → 2024-02-06 13:42 | Outpatient (BNVA) | payer MEDICARE, SELFPAY | PROVIDERS: PCP Internal Medicine; Visit Provider Internal Medicine Nephrology | DX: N18.4 Chronic kidney disease, stage 4 (severe) (principal); E78.5 Hyperlipidemia, unspecified | CPT/HCPCS: 99212 ==

== ENCOUNTER 2024-05-05 12:48 | Outpatient (REF) | payer MEDICARE, SELFPAY ==
[2024-05-05 13:04] LABS: MANUAL DIFF FLAG NO
[2024-05-05 13:43] LABS: Basophils Absolute Auto 0.1 X10*3/uL (0.0-0.2); Basophils Percent Auto 0.8 % (0-2); Eosinophils Absolute Auto 0.2 X10*3/uL (0.0-0.4); Eosinophils Percent Auto 3.1 % (0-4); Hematocrit 35.8 % (42.0-52.0); Hemoglobin 11.9 g/dl (14.0-18.0); Imm Gran Abs Auto 0.02 X10*3/uL (0.00-0.03); Imm Gran Pct Auto 0.3 % (0.0-0.4); Lymphocytes Absolute Auto 1.6 X10*3/uL (1.2-4.9); Lymphocytes Percent Auto 22.2 % (20-40); Mean Corpuscular HGB Conc 33.2 g/dl (31.0-36.0); Mean Corpuscular Hemoglobin 31.4 pg (27.0-33.0); Mean Corpuscular Volume 94.5 fL (80.0-98.0); Monocytes Absolute Auto 0.5 X10*3/uL (0.1-1.2); Monocytes Percent Auto 6.5 % (2-11); Neutrophils Absolute Auto 4.8 x10*3/uL (2.0-8.3); Neutrophils Percent Auto 67.1 % (45-73); Platelet Count 190 X10*3/uL (160-400); Red Blood Count 3.79 X10*6/uL (4.60-5.80); Red Cell Distribution Width 13.3 % (11.0-16.0); White Blood Count 7.2 X10*3/uL (4.8-10.8)
[2024-05-05 14:12] LABS: Anion Gap 11 (12-20); Blood Urea Nitrogen 29 mg/dL (9-16); Carbon Dioxide 23 mmol/L (22-29); Chloride 113 mmol/L (96-108); Estimated Glomerular Filt Rate 23; Potassium 4.9 mmol/L (3.3-5.1); Sodium 142 mmol/L (135-145)
[2024-05-05 14:26] LABS: Parathyroid Hormone Intact 254.4 pg/mL (8.7-77.1)
== END 2024-05-05 12:49 | disposition home or self-care (01) ==
LOC: HO.LAB 12:48
PROVIDERS: PCP Internal Medicine; Visit Provider Internal Medicine Nephrology
DX: N18.9 Chronic kidney disease, unspecified (principal); D63.1 Anemia in chronic kidney disease; N25.81 Secondary hyperparathyroidism of renal origin; E87.5 Hyperkalemia; N18.4 Chronic kidney disease, stage 4 (severe)
CPT/HCPCS: 36415; 80051; 82310; 82565; 83970; 84100; 84520; 85025

== ENCOUNTER 2024-05-07 13:43 | Outpatient (AMB) | payer MEDICARE, MEDICAID, SELFPAY ==
--- NOTE | 2024-05-07 13:44 | HO.NEPHOV ---
Vital Signs 05/07/24 13:45 Height 5 ft 9 in Weight 141 lb 4 oz BMI 20.9 BP 130/80 Blood Pressure Location Rt brachial Position Sitting Pulse 86 Pulse Source Pulse Oximeter Pulse Oximetry (%) 96 Oxygen Delivery Method Room Air Intake Visit Reasons: Anemia in chronic kidney disease/ 3 MO FU Occupational Health Nurse Manager Required: No Accompanied by: Self / Same As Patient Allergies No Known Allergies Allergy (Verified 05/07/24 13:47) HPI Comments Details: I had the privilege of seeing Adalberto in follow-up of his chronic kidney disease, hypertension, proteinuria as well as secondary hyperparathyroidism. He has been compliant with potassium lowering medications. His serum creatinine has been fairly stable. He tries to minimize sodium intake in the diet. His blood pressure has been good at home. He denies any nausea, vomiting, diarrhea, chest pain, shortness of breath, proximal nocturnal dyspnea, orthopnea, pedal edema. He has no urinary symptoms . He has no orthostasis. He has not had any medication changes or hospitalizations recently. [facility] Medical History CVA (cerebral vascular accident) Diabetes Renal insufficiency Surgical History H/O eye surgery Family History Father Lung cancer Maternal Grandmother Ovarian cancer Social History Housing: House Alcohol intake: former Patient Tobacco Use Status: Current everyday Tobacco user Tobacco use type: Cigarette e-Cigarette/Vaping Use: Never Used Substance Use Type: Marijuana service: No Current occupational status: retired Cognitive needs: No Hearing needs: No Vision needs: No Review of Systems Const All systems reviewed & are unremarkable except as noted in HPI and below Physical Exam Vital Signs: Last Vital Signs Pulse 86 05/07/24 13:45 BP 130/80 05/07/24 13:45 Pulse Ox 96 05/07/24 13:45 Oxygen Delivery Method Room Air 05/07/24 13:45 BMI result Body Mass Index 20.9 Const General: comfortable and no acute distress Orientation/consciousness: patient oriented x3 HEENT Head: Yes normocephalic Mouth: Normal oral and palatal mucosa present Eyes EOM: EOMs intact bilaterally Neck Neck: Yes supple Resp Auscultation: clear to auscultation bilaterally Cardio Jugular venous distension: no JVD Rate: regular rate GI Palpation (GI): Soft to palpation Auscultation: normal bowel sounds General: Yes no CVA tenderness Back/Spine/Pelvis Back: no CVA tenderness Skin General skin exam: no rashes or lesions noted Neuro General: patient oriented x3 and moves all extremities Extrem General: Yes no pedal edema Results Reviewed Nephrology Results: Hgb 11.9 g/dl (14.0-18.0) L 05/05/24 WBC 7.2 X10*3/uL (4.8-10.8) 05/05/24 Plt Count 190 X10*3/uL (160-400) 05/05/24 Sodium 142 mmol/L (135-145) 05/05/24 Potassium 4.9 mmol/L (3.3-5.1) 05/05/24 Chloride 113 mmol/L (96-108) H 05/05/24 Carbon Dioxide 23 mmol/L (22-29) 05/05/24 BUN 29 mg/dL (9-16) H 05/05/24 Creatinine 2.70 mg/dL (0.5-1.4) H 05/05/24 Calcium 9.0 mg/dL (8.4-10.2) 05/05/24 Phosphorus 3.0 mg/dL (2.7-4.5) 05/05/24 PTH Intact 254.4 pg/mL (8.7-77.1) H 05/05/24 Assessment & Plan Assessment & Plan (1) CKD (chronic kidney disease) stage 4, GFR 15-29 ml/min: Code(s): N18.4 - Chronic kidney disease, stage 4 (severe) Category: Medical (2) Secondary hyperparathyroidism: Code(s): N25.81 - Secondary hyperparathyroidism of renal origin Category: Medical (3) Anemia in chronic kidney disease: Code(s): N18.9 - Chronic kidney disease, unspecified; D63.1 - Anemia in chronic kidney disease Category: Medical Qualifiers: Chronic kidney disease stage: stage 4 (severe) Qualified Code(s): N18.4 - Chronic kidney disease, stage 4 (severe); D63.1 - Anemia in chronic kidney disease Plan 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 He is not on any Iker inhibitor due to recurrent FLOR and hyperkalemia in the past. He avoids nonsteroidal anti-inflammatory medications and maintain good hydration. He can continue taking his Kionex 15 g every other day. His ultrasounds in the past and been unremarkable. He has tolerated statins. Can continue with nifedipine 120 mg daily. He can continue on calcitriol 0.25 mch every other day. Does not need any Procrit now. I did not make any other medication changes today. All his questions and concerns were addressed. Orders: Orders Calcium Today D63.1 - Anemia in chronic kidney disease, N18.4 - Chronic kidney disease, stage 4 (severe), N25.81 - Secondary hyperparathyroidism of renal origin Vitamin D 25-OH Total Today D63.1 - Anemia in chronic kidney disease, N18.4 - Chronic kidney disease, stage 4 (severe), N25.81 - Secondary hyperparathyroidism of renal origin Hemoglobin A1c Today D63.1 - Anemia in chronic kidney disease, N18.4 - Chronic kidney disease, stage 4 (severe), N25.81 - Secondary hyperparathyroidism of renal origin Electrolytes Today D63.1 - Anemia in chronic kidney disease, N18.4 - Chronic kidney disease, stage 4 (severe), N25.81 - Secondary hyperparathyroidism of renal origin Blood Urea Nitrogen Today D63.1 - Anemia in chronic kidney disease, N18.4 - Chronic kidney disease, stage 4 (severe), N25.81 - Secondary hyperparathyroidism of renal origin Creatinine Today D63.1 - Anemia in chronic kidney disease, N18.4 - Chronic kidney disease, stage 4 (severe), N25.81 - Secondary hyperparathyroidism of renal origin Coding Level of Care Code Est Pt Level 4 (25604) Diagnoses CKD (chronic kidney disease) stage 4, GFR 15-29 ml/min N18.4 Secondary hyperparathyroidism N25.81 Anemia in stage 4 chronic kidney disease N18.4; D63.1 Chronic kidney disease stage: stage 4 (severe)
[2024-05-07 13:45] VITALS: BP 130/80; PULSE 86; O2SAT 96; BMI 20.9
== END 2024-05-07 14:11 | disposition home or self-care (01) ==
PROVIDERS: PCP Internal Medicine; Visit Provider Internal Medicine Nephrology
DX: N18.4 Chronic kidney disease, stage 4 (severe) (principal); N25.81 Secondary hyperparathyroidism of renal origin; D63.1 Anemia in chronic kidney disease
CPT/HCPCS: 99214

== ENCOUNTER → 2024-05-07 13:43 | Outpatient (BNVA) | payer MEDICARE, SELFPAY | PROVIDERS: PCP Internal Medicine; Visit Provider Internal Medicine Nephrology | DX: N25.81 Secondary hyperparathyroidism of renal origin (principal); N18.4 Chronic kidney disease, stage 4 (severe); D63.1 Anemia in chronic kidney disease | CPT/HCPCS: 99212 ==

== ENCOUNTER → 2024-07-17 11:51 | Outpatient (RCR) | payer MEDICARE, MEDICAID, SELFPAY ==
[2021-02-07 13:25] VITALS: BP 121/58; PULSE 111; RESP 12; TEMP 36.6; O2SAT 98; BMI 22.7
--- NOTE | 2021-02-07 13:50 | PM.HEMONCCN ---
Subjective - Subjective Chief complaint: Low hemoglobin Patient: new to practice Consult date: 02/07/21 Primary Care Provider: Luz Davenport MD HPI - Consult Narrative Reason for consult: Anemia Narrative: Adalberto Goldberg is a 65 year old male referred for evaluation of anemia. He states that he was fine until he had a stroke 3 years ago. He had not seen physician for over 40 years prior to that. Ever since he had his stroke, he was diagnosed with diabetes, neuropathy and more recently anemia and vitamin B12 deficiency. He has been taking oral vitamin B12 for the past month. He says since the stroke, he cannot feel his socks. He says he was on medication for his diabetes but he no longer requires it. He is seeing a kidney specialist. He denies any fever, chills, night sweats or unexplained weight loss. Review of Systems - Constitutional Reports no additional constitutional complaints - Cardiovascular Reports no additional cardiovascular complaints - Respiratory Reports no additional respiratory complaints - Gastrointestinal Reports no additional gastrointestinal complaints Oncology Screenings - ECOG Performance Status ECOG Performance Status: 1 [facility] Medical History: Medical History (Last Updated 02/07/21 @ 14:36 by Rochelle Izaguirre MD) CVA (cerebral vascular accident) Diabetes Renal insufficiency Family History: Family History (Last Updated 02/07/21 @ 13:30 by Radha Rivera) Father Lung cancer Maternal Grandmother Ovarian cancer Surgical History: Surgical History (Last Updated 02/07/21 @ 13:27 by Radha Rivera) H/O eye surgery Social History: Social History (Last Updated 02/07/21 @ 13:32 by Radha Rivera) Alcohol History: Alcohol intake: former Alcohol History Details: Alcohol intake frequency: holiday/special occasion Alcohol type: beer Tobacco History: Smoking Status: Current every day smoker Substance Use History: Substance Use Type: Marijuana Smoking status: Current every day smoker Home Medications and Allergies Home Medications Medication Instructions Recorded Confirmed Type atorvastatin 10 mg tablet 10 mg PO DAILY 12/31/20 02/07/21 History nifedipine 60 mg tablet,extended 60 mg PO DAILY 12/31/20 02/07/21 History release ketorolac 1 drp OPHTHALMIC (EYE) TID 02/07/21 02/07/21 History Allergies Allergy/AdvReac Type Severity Reaction Status Date / Time none Allergy Unknown Unknown Uncoded 12/31/20 10:06 Physical Exam Vital signs: Vital Signs Temp 98 F 02/07/21 13:25 Pulse 111 H 02/07/21 13:25 Resp 12 02/07/21 13:25 BP 121/58 L 02/07/21 13:25 Pulse Ox 98 02/07/21 13:25 Intake & Output 02/06/21 02/07/21 02/07/21 18:59 06:59 18:59 Other: Weight 69.9 kg [place] Weight in Grams [id number] Weight 69.9 kg - Constitutional Present: no acute distress, average body habitus - Routine HEENT Exam Eye: Present: EOMI, PERRL - Routine Neck Exam Present: supple - Routine Respiratory Exam Absent: accessory muscle use - Routine Cardiovascular Exam Cardiovascular: Present: S1, S2 - Routine Skin Exam Present: intact - Routine Neurological Exam Present: oriented X3 Hem/Onc Consult Result - Labs CBC & Chem 7: 02/07/21 14:08 Assessment and Plan (1) Anemia Status: Chronic 1. This is a 65-year-old man with chronic renal insufficiency diagnosed with worsening normocytic anemia. He he was just diagnosed with vitamin-B12 deficiency and is on oral supplementation. He was not tested for pernicious anemia. He does not give any history of GI blood losses, but he has never had a screening colonoscopy and he does not want one. Anemia is probably multifactorial. He has renal insufficiency which could be causing his anemia, vitamin B12 deficiency can cause macrocytic anemia. Iron studies are pending. There is no evidence of hemolysis. Primary bone marrow disorder such as myelodysplastic syndrome, lymphoma and plasma cell dyscrasia have to be ruled out as well. Depending on blood work, further recommendations to be made. For now I have asked him to continue with oral B12 supplementation. I thank you for this consultation.
[2021-02-07 14:12] LABS: MANUAL DIFF FLAG NO
[2021-02-07 14:17] LABS: Basophils Absolute Auto 0.1 X10*3/uL (0.0-0.2); Basophils Percent Auto 1.1 % (0-2); Eosinophils Absolute Auto 0.1 X10*3/uL (0.0-0.4); Eosinophils Percent Auto 2.3 % (0-4); Hematocrit 26.7 % (42-52); Hemoglobin 8.9 g/dl (14.0-18.0); Imm Gran Abs Auto 0.02 X10*3/uL (0.00-0.03); Imm Gran Pct Auto 0.4 % (0.0-0.4); Immature Retic Fraction 5.4 % (2.3-13.4); Lymphocytes Absolute Auto 1.2 X10*3/uL (1.2-4.9); Lymphocytes Percent Auto 21.6 % (20-40); Mean Corpuscular HGB Conc 33.3 g/dl (31.0-36.0); Mean Corpuscular Hemoglobin 31.7 pg (27.0-33.0); Mean Platelet Volume 10.6 fL (9.4-12.4); Monocytes Absolute Auto 0.3 X10*3/uL (0.1-1.2); Monocytes Percent Auto 5.7 % (2-11); Neutrophils Absolute Auto 3.9 X10*3/uL (2.0-8.3); Neutrophils Percent Auto 68.9 % (45-73); Platelet Count 204 X10*3/uL (160-400); Red Blood Count 2.81 X10*6/uL (4.60-5.80); Retic HGB Equivalent 34.6 pg (30.0-35.0); Reticulocyte Percent 0.7 % (0.5-1.8); Reticulocytes Absolute 0.021 X10*6/uL (0.026-0.095); White Blood Count 5.6 X10*3/uL (4.8-10.8)
--- NOTE | 2021-02-07 14:24 | MHC.HEMONCMA ---
Pt presents for consult for anemia. History reviewed.
[2021-02-07 14:40] LABS: Iron 58 mcg/dL (45-160); Lactate Dehydrogenase 208 U/L (118-273); Percent Iron Saturation 35 % (15-50); Total Iron Binding Capacity 168 mcg/dL (228-428); Unsaturated Iron Binding 110 ug/dL
[2021-02-07 15:14] LABS: Folate 3.5 ng/mL (> or = 4.0); Vitamin B12 505 pg/mL (200-900)
--- NOTE | 2021-02-07 15:39 | MHC.HEMONC ---
Pt called per Dr Izaguirre to tell him that she has ordered folic acid for him to start along with the vitamin b12 that he is already taking. He understoood the rx will be at the pharmacy.
[2021-02-08 14:48] LABS: Prot Elec - Albumin 2.5 g/dL (3.8-4.8); Prot Elec - Alpha1 0.4 g/dL (0.2-0.3); Prot Elec - Alpha2 0.7 g/dL (0.5-0.9); Prot Elec - Beta 1 0.3 g/dL (0.4-0.6); Prot Elec - Beta 2 0.3 g/dL (0.2-0.5); Prot Elec - Gamma 0.8 g/dL (0.8-1.7)
[2021-02-09 01:31] LABS: IgA 272 mg/dL (70-320); IgG 871 mg/dL (600-1540); IgM 99 mg/dL (50-300)
== END | disposition home or self-care (01) ==
LOC: HO.ONC 02-07 12:57
PROVIDERS: PCP Internal Medicine; Referring Provider Internal Medicine; Visit Provider Internal Medicine
DX: D64.9 Anemia, unspecified (principal); E53.8 Deficiency of other specified B group vitamins; N18.9 Chronic kidney disease, unspecified; Z86.73 Personal history of transient ischemic attack (TIA), and cerebral infarction without residual deficits; Z79.899 Other long term (current) drug therapy
CPT/HCPCS: 36415; 82607; 82746; 82784; 83540; 83615; 84155; 84165; 85025; 85045; 86334; 99202

== ENCOUNTER 2024-07-28 15:13 | Outpatient (REF) | payer MEDICARE, SELFPAY ==
[2024-07-28 17:15] LABS: Anion Gap 12 (12-20); Blood Urea Nitrogen 28 mg/dL (9-16); Calcium 9.1 mg/dL (8.4-10.2); Carbon Dioxide 20 mmol/L (22-29); Chloride 117 mmol/L (96-108); Estimated Glomerular Filt Rate 25; Potassium 4.5 mmol/L (3.3-5.1); Sodium 144 mmol/L (135-145)
[2024-07-28 17:34] LABS: Vitamin D 25-OH Total 52.1 ng/mL (>30)
[2024-07-29 05:29] LABS: Estimated Average Glucose 103 mg/dL; Hemoglobin A1c % 5.2 % (<6.0)
== END 2024-07-28 15:14 | disposition home or self-care (01) ==
LOC: HO.LAB 15:13
PROVIDERS: PCP Internal Medicine; Visit Provider Internal Medicine Nephrology
DX: N18.4 Chronic kidney disease, stage 4 (severe) (principal); D63.1 Anemia in chronic kidney disease; N25.81 Secondary hyperparathyroidism of renal origin; Z13.1 Encounter for screening for diabetes mellitus
CPT/HCPCS: 36415; 80051; 82306; 82310; 82565; 83036; 84520

== ENCOUNTER 2024-07-30 14:11 | Outpatient (AMB) | payer MEDICARE, MEDICAID, SELFPAY ==
--- NOTE | 2024-07-30 14:45 | HO.NEPHOV ---
Vital Signs 07/30/24 14:46 Height 5 ft 9 in Weight 141 lb 8 oz BMI 20.9 BP 134/70 Blood Pressure Location Rt brachial Position Sitting Pulse 90 Pulse Source Pulse Oximeter Pulse Oximetry (%) 97 Oxygen Delivery Method Room Air Intake Visit Reasons: Anemia in chronic kidney disease- Conf Parking Lot Signaler Required: No Accompanied by: Self / Same As Patient Allergies No Known Allergies Allergy (Verified 07/30/24 14:47) Medication List - Last Reconciled 07/30/24 by Rian Browne MD calcitriol 0.25 mcg PO 3XW 30 days cyanocobalamin (vitamin B-12) 1,000 mcg PO DAILY 90 days ketorolac 0.5% 1 drp ophthalmic (eye) TID nifedipine ER 120 mg PO DAILY sodium polystyrene sulfonate 15 grams PO Q OTHER DAY 90 days HPI Comments Details: I had the privilege of seeing Adalberto in follow-up of his chronic kidney disease, hypertension, proteinuria as well as secondary hyperparathyroidism. He has been compliant with potassium lowering medications. His serum creatinine has been fairly stable. He tries to minimize sodium intake in the diet. His blood pressure has been good at home. He denies any nausea, vomiting, diarrhea, chest pain, shortness of breath, proximal nocturnal dyspnea, orthopnea, pedal edema. He has no urinary symptoms . He has no orthostasis. He has not had any medication changes or hospitalizations recently. FORMERLY [facility] Medical History CVA (cerebral vascular accident) Diabetes Renal insufficiency Surgical History H/O eye surgery Family History Father Lung cancer Maternal Grandmother Ovarian cancer Social History Housing: House Alcohol intake: former Patient Tobacco Use Status: Current everyday Tobacco user Tobacco use type: Cigarette e-Cigarette/Vaping Use: Never Used Substance Use Type: Marijuana service: No Current occupational status: retired Cognitive needs: No Hearing needs: No Vision needs: No Review of Systems Const All systems reviewed & are unremarkable except as noted in HPI and below Physical Exam Vital Signs: Last Vital Signs Pulse 90 07/30/24 14:46 BP 134/70 07/30/24 14:46 Pulse Ox 97 07/30/24 14:46 Oxygen Delivery Method Room Air 07/30/24 14:46 BMI result Body Mass Index 20.9 Const General: comfortable and no acute distress Orientation/consciousness: patient oriented x3 HEENT Head: Yes normocephalic Mouth: Normal oral and palatal mucosa present Eyes EOM: EOMs intact bilaterally Neck Neck: Yes supple Resp Auscultation: clear to auscultation bilaterally Cardio Jugular venous distension: no JVD Rate: regular rate GI Palpation (GI): Soft to palpation Auscultation: normal bowel sounds General: Yes no CVA tenderness Back/Spine/Pelvis Back: no CVA tenderness Skin General skin exam: no rashes or lesions noted Neuro General: patient oriented x3 and moves all extremities Extrem General: Yes no pedal edema Results Reviewed Nephrology Results: Hgb 11.9 g/dl (14.0-18.0) L 05/05/24 WBC 7.2 X10*3/uL (4.8-10.8) 05/05/24 Plt Count 190 X10*3/uL (160-400) 05/05/24 Sodium 144 mmol/L (135-145) 07/28/24 Potassium 4.5 mmol/L (3.3-5.1) 07/28/24 Chloride 117 mmol/L (96-108) H 07/28/24 Carbon Dioxide 20 mmol/L (22-29) L 07/28/24 BUN 28 mg/dL (9-16) H 07/28/24 Creatinine 2.57 mg/dL (0.5-1.4) H 07/28/24 Calcium 9.1 mg/dL (8.4-10.2) 07/28/24 Phosphorus 3.0 mg/dL (2.7-4.5) 05/05/24 PTH Intact 254.4 pg/mL (8.7-77.1) H 05/05/24 Assessment & Plan Assessment & Plan (1) CKD (chronic kidney disease) stage 4, GFR 15-29 ml/min: Code(s): N18.4 - Chronic kidney disease, stage 4 (severe) Category: Medical (2) Secondary hyperparathyroidism: Code(s): N25.81 - Secondary hyperparathyroidism of renal origin Category: Medical (3) Anemia in chronic kidney disease: Code(s): N18.9 - Chronic kidney disease, unspecified; D63.1 - Anemia in chronic kidney disease Category: Medical Qualifiers: Chronic kidney disease stage: stage 4 (severe) Qualified Code(s): N18.4 - Chronic kidney disease, stage 4 (severe); D63.1 - Anemia in chronic kidney disease (4) Hypertension, essential: Code(s): I10 - Essential (primary) hypertension Category: Medical Plan 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 He is not on any Iker inhibitor due to recurrent FLOR and hyperkalemia in the past. He avoids nonsteroidal anti-inflammatory medications and maintain good hydration. He can continue taking his Kionex 15 g every other day. His ultrasound in the past and been unremarkable. He has tolerated statins. He can continue with nifedipine 60 mg daily. He also can continue on calcitriol 0.25 mcg every other day. Does not need any Procrit now. I did not make any other medication changes today. All his questions and concerns were addressed. Orders: Orders Creatinine 07/30/24 D63.1 - Anemia in chronic kidney disease, E87.5 - Hyperkalemia, N18.4 - Chronic kidney disease, stage 4 (severe), N25.81 - Secondary hyperparathyroidism of renal origin Blood Urea Nitrogen 07/30/24 D63.1 - Anemia in chronic kidney disease, E87.5 - Hyperkalemia, N18.4 - Chronic kidney disease, stage 4 (severe), N25.81 - Secondary hyperparathyroidism of renal origin Creatinine 3 Months D63.1 - Anemia in chronic kidney disease, N18.4 - Chronic kidney disease, stage 4 (severe), N25.81 - Secondary hyperparathyroidism of renal origin Blood Urea Nitrogen 3 Months D63.1 - Anemia in chronic kidney disease, N18.4 - Chronic kidney disease, stage 4 (severe), N25.81 - Secondary hyperparathyroidism of renal origin Parathyroid Hormone Intact 07/30/24 D63.1 - Anemia in chronic kidney disease, N18.4 - Chronic kidney disease, stage 4 (severe), N25.81 - Secondary hyperparathyroidism of renal origin Electrolytes 07/30/24 D63.1 - Anemia in chronic kidney disease, E87.5 - Hyperkalemia, N18.4 - Chronic kidney disease, stage 4 (severe), N25.81 - Secondary hyperparathyroidism of renal origin Electrolytes 3 Months D63.1 - Anemia in chronic kidney disease, N18.4 - Chronic kidney disease, stage 4 (severe), N25.81 - Secondary hyperparathyroidism of renal origin Calcium 07/30/24 D63.1 - Anemia in chronic kidney disease, N18.4 - Chronic kidney disease, stage 4 (severe), N25.81 - Secondary hyperparathyroidism of renal origin Medications: Changed From nifedipine ER 120 mg PO DAILY To nifedipine ER 60 mg PO ONCE 90 tabs 4RF Coding Level of Care Code Est Pt Level 4 (08057) Diagnoses CKD (chronic kidney disease) stage 4, GFR 15-29 ml/min N18.4 Secondary hyperparathyroidism N25.81 Anemia in stage 4 chronic kidney disease N18.4; D63.1 Chronic kidney disease stage: stage 4 (severe) Hypertension, essential I10
[2024-07-30 14:46] VITALS: BP 134/70; PULSE 90; O2SAT 97; BMI 20.9
== END 2024-07-30 15:01 | disposition home or self-care (01) ==
PROVIDERS: PCP Internal Medicine; Visit Provider Internal Medicine Nephrology
DX: I12.9 Hypertensive chronic kidney disease with stage 1 through stage 4 chronic kidney disease, or unspecified chronic kidney disease (principal); E11.22 Type 2 diabetes mellitus with diabetic chronic kidney disease; N18.4 Chronic kidney disease, stage 4 (severe); N25.81 Secondary hyperparathyroidism of renal origin; D63.1 Anemia in chronic kidney disease
CPT/HCPCS: 99214

== ENCOUNTER → 2024-07-30 14:11 | Outpatient (BNVA) | payer MEDICARE, SELFPAY | PROVIDERS: PCP Internal Medicine; Visit Provider Internal Medicine Nephrology | DX: I12.9 Hypertensive chronic kidney disease with stage 1 through stage 4 chronic kidney disease, or unspecified chronic kidney disease (principal); N18.4 Chronic kidney disease, stage 4 (severe); N25.81 Secondary hyperparathyroidism of renal origin; D63.1 Anemia in chronic kidney disease | CPT/HCPCS: 99212 ==

== ENCOUNTER 2024-10-27 14:56 | Outpatient (REF) | payer MEDICARE, SELFPAY ==
[2024-10-27 17:14] LABS: Anion Gap 12 (12-20); Blood Urea Nitrogen 30 mg/dL (9-16); Calcium 8.8 mg/dL (8.4-10.2); Carbon Dioxide 21 mmol/L (22-29); Chloride 112 mmol/L (96-108); Estimated Glomerular Filt Rate 22; Sodium 140 mmol/L (135-145)
[2024-10-27 17:20] LABS: Parathyroid Hormone Intact 196.4 pg/mL (8.7-77.1)
== END 2024-10-27 14:57 | disposition home or self-care (01) ==
LOC: HO.LAB 14:56
PROVIDERS: PCP Psychiatry & Neurology Neurology; Visit Provider Internal Medicine Nephrology
DX: N18.4 Chronic kidney disease, stage 4 (severe) (principal); E87.5 Hyperkalemia; N25.81 Secondary hyperparathyroidism of renal origin; D63.1 Anemia in chronic kidney disease
CPT/HCPCS: 36415; 80051; 82310; 82565; 83970; 84520

== ENCOUNTER 2024-10-29 14:04 | Outpatient (AMB) | payer MEDICARE, SELFPAY ==
[2024-10-29 14:21] VITALS: BP 130/70; BMI 22.0
--- NOTE | 2024-10-29 14:21 | HO.NEPHOV ---
Vital Signs 10/29/24 14:21 Height 5 ft 9 in Weight 149 lb 2 oz BMI 22.0 BP 130/70 Blood Pressure Location Lt brachial Position Sitting Intake Visit Reasons: Anemia in CKD/ Conf Automated Access Systems Technician Required: No Accompanied by: Self / Same As Patient Allergies No Known Allergies Allergy (Verified 10/29/24 14:22) HPI Comments Details: Adalberto in follow-up of his chronic kidney disease, hypertension, proteinuria as well as secondary hyperparathyroidism. He has been compliant with potassium lowering medications. His serum creatinine has been fairly stable. He tries to minimize sodium intake in the diet. His blood pressure has been good at home. He denies any nausea, vomiting, diarrhea, chest pain, shortness of breath, proximal nocturnal dyspnea, orthopnea, pedal edema. He has no urinary symptoms . He has no orthostasis. FORMERLY [facility] Medical History CVA (cerebral vascular accident) Diabetes Renal insufficiency Surgical History H/O eye surgery Family History Father Lung cancer Maternal Grandmother Ovarian cancer Social History Housing: House Alcohol intake: former Patient Tobacco Use Status: Current everyday Tobacco user Tobacco use type: Cigarette e-Cigarette/Vaping Use: Never Used Substance Use Type: Marijuana service: No Current occupational status: retired Cognitive needs: No Hearing needs: No Vision needs: No Review of Systems Const All systems reviewed & are unremarkable except as noted in HPI and below Physical Exam Vital Signs: Last Vital Signs BP 150/72 H 10/29/24 14:21 BMI result Body Mass Index 22.0 Const General: comfortable and no acute distress Orientation/consciousness: patient oriented x3 HEENT Head: Yes normocephalic Mouth: Normal oral and palatal mucosa present Eyes EOM: EOMs intact bilaterally Neck Neck: Yes supple Resp Auscultation: clear to auscultation bilaterally Cardio Jugular venous distension: no JVD Rate: regular rate GI Palpation (GI): Soft to palpation Auscultation: normal bowel sounds General: Yes no CVA tenderness Back/Spine/Pelvis Back: no CVA tenderness Skin General skin exam: no rashes or lesions noted Neuro General: patient oriented x3 and moves all extremities Extrem General: Yes no pedal edema Results Reviewed Nephrology Results: Sodium 140 mmol/L (135-145) 10/27/24 Potassium 5.0 mmol/L (3.3-5.1) 10/27/24 Chloride 112 mmol/L (96-108) H 10/27/24 Carbon Dioxide 21 mmol/L (22-29) L 10/27/24 BUN 30 mg/dL (9-16) H 10/27/24 Creatinine 2.84 mg/dL (0.5-1.4) H 10/27/24 Calcium 8.8 mg/dL (8.4-10.2) 10/27/24 PTH Intact 196.4 pg/mL (8.7-77.1) H 10/27/24 Assessment & Plan Assessment & Plan (1) Anemia in chronic kidney disease: Code(s): N18.9 - Chronic kidney disease, unspecified; D63.1 - Anemia in chronic kidney disease Category: Medical Qualifiers: Chronic kidney disease stage: stage 4 (severe) Qualified Code(s): N18.4 - Chronic kidney disease, stage 4 (severe); D63.1 - Anemia in chronic kidney disease (2) Secondary hyperparathyroidism: Code(s): N25.81 - Secondary hyperparathyroidism of renal origin Category: Medical (3) Hyperkalemia: Code(s): E87.5 - Hyperkalemia Category: Medical (4) CKD (chronic kidney disease) stage 4, GFR 15-29 ml/min: Code(s): N18.4 - Chronic kidney disease, stage 4 (severe) Category: Medical (5) Hypertension, essential: Code(s): I10 - Essential (primary) hypertension Category: Medical Plan 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 He is not on any Iker inhibitor due to recurrent FLOR and hyperkalemia in the past. He avoids nonsteroidal anti-inflammatory medications and maintain good hydration. He can continue taking his Kionex 15 g every other day. His ultrasound in the past and been unremarkable. He has tolerated statins. He can continue with nifedipine 60 mg daily. He also can continue on calcitriol 0.25 mcg every other day. Does not need any Procrit now. I may start him on SGLT2 i with time. I did not make any other medication changes today. All his questions and concerns were addressed. Orders: Orders Electrolytes 3 Months D63.1 - Anemia in chronic kidney disease, E87.5 - Hyperkalemia, N18.4 - Chronic kidney disease, stage 4 (severe), N25.81 - Secondary hyperparathyroidism of renal origin Blood Urea Nitrogen 3 Months D63.1 - Anemia in chronic kidney disease, E87.5 - Hyperkalemia, N18.4 - Chronic kidney disease, stage 4 (severe), N25.81 - Secondary hyperparathyroidism of renal origin Creatinine 3 Months D63.1 - Anemia in chronic kidney disease, E87.5 - Hyperkalemia, N18.4 - Chronic kidney disease, stage 4 (severe), N25.81 - Secondary hyperparathyroidism of renal origin Coding Level of Care Code Est Pt Level 4 (37775) Diagnoses Anemia in stage 4 chronic kidney disease N18.4; D63.1 Chronic kidney disease stage: stage 4 (severe) Secondary hyperparathyroidism N25.81 Hyperkalemia E87.5 CKD (chronic kidney disease) stage 4, GFR 15-29 ml/min N18.4 Hypertension, essential I10
== END 2024-10-29 14:49 | disposition home or self-care (01) ==
PROVIDERS: PCP Internal Medicine; Visit Provider Internal Medicine Nephrology
DX: I12.9 Hypertensive chronic kidney disease with stage 1 through stage 4 chronic kidney disease, or unspecified chronic kidney disease (principal); N18.4 Chronic kidney disease, stage 4 (severe); D63.1 Anemia in chronic kidney disease; N25.81 Secondary hyperparathyroidism of renal origin; E87.5 Hyperkalemia
CPT/HCPCS: 99214

== ENCOUNTER → 2024-10-29 14:04 | Outpatient (BNVA) | payer MEDICARE, SELFPAY | PROVIDERS: PCP Internal Medicine; Visit Provider Internal Medicine Nephrology | DX: I12.9 Hypertensive chronic kidney disease with stage 1 through stage 4 chronic kidney disease, or unspecified chronic kidney disease (principal); N18.4 Chronic kidney disease, stage 4 (severe); D63.1 Anemia in chronic kidney disease; N25.81 Secondary hyperparathyroidism of renal origin; E78.5 Hyperlipidemia, unspecified | CPT/HCPCS: 99212 ==

== ENCOUNTER 2025-02-09 11:32 | Outpatient (REF) | payer MEDICARE, SELFPAY ==
[2025-02-09 12:52] LABS: Anion Gap 11 (12-20); Blood Urea Nitrogen 30 mg/dL (9-16); Carbon Dioxide 20 mmol/L (22-29); Chloride 117 mmol/L (96-108); Estimated Glomerular Filt Rate 23; Potassium 4.5 mmol/L (3.3-5.1); Sodium 143 mmol/L (135-145)
== END 2025-02-09 11:33 | disposition home or self-care (01) ==
LOC: HO.LAB 11:32
PROVIDERS: PCP Internal Medicine; Visit Provider Internal Medicine Nephrology
DX: N18.4 Chronic kidney disease, stage 4 (severe) (principal); D63.1 Anemia in chronic kidney disease; N25.81 Secondary hyperparathyroidism of renal origin; E87.5 Hyperkalemia
CPT/HCPCS: 36415; 80051; 82565; 84520

== ENCOUNTER 2025-02-11 14:14 | Outpatient (AMB) | payer MEDICARE, SELFPAY ==
--- NOTE | 2025-02-11 14:14 | HO.NEPHOV_ITS ---
Vital Signs 02/11/25 14:17 Height 5 ft 9 in Weight 147 lb 2 oz BMI 21.7 BP 132/72 Blood Pressure Location Rt brachial Position Sitting Pulse 93 Pulse Source Pulse Oximeter Pulse Oximetry (%) 98 Oxygen Delivery Method Room Air Intake Visit Reasons: Anemia in CKD-Conf Hand Bunch Maker Required: No Accompanied by: Self / Same As Patient Allergies No Known Allergies Allergy (Verified 02/11/25 14:16) Medication List - Last Reconciled 02/11/25 by Rian Browne MD calcitriol 0.25 mcg PO Q OTHER DAY cyanocobalamin (vitamin B-12) 1,000 mcg PO DAILY 90 days ketorolac 0.5% 1 drp ophthalmic (eye) TID nifedipine ER 60 mg PO DAILY sodium polystyrene sulfonate 15 grams PO Q OTHER DAY 90 days HPI Comments Details: Adalberto in follow-up of his chronic kidney disease, hypertension, proteinuria as well as secondary hyperparathyroidism. He has been compliant with potassium lowering medications. His serum creatinine has been fairly stable. He tries to minimize sodium intake in the diet. His blood pressure has been good at home. He denies any nausea, vomiting, diarrhea, chest pain, shortness of breath, proxi mal nocturnal dyspnea, orthopnea, pedal edema. He has no urinary symptoms . He has no orthostasis. FORMERLY [facility] Medical History CVA (cerebral vascular accident) Diabetes Renal insufficiency Surgical History H/O eye surgery Family History Father Lung cancer Maternal Grandmother Ovarian cancer Social History Housing: House Alcohol intake: former Patient Tobacco Use Status: Current everyday Tobacco user Tobacco use type: Cigarette e-Cigarette/Vaping Use: Never Used Substance Use Type: Marijuana service: No Current occupational status: retired Cognitive needs: No Hearing needs: No Vision needs: No Review of Systems Const All systems reviewed & are unremarkable except as noted in HPI and below Physical Exam Vital Signs: Last Vital Signs Pulse 93 02/11/25 14:17 BP 132/72 02/11/25 14:17 Pulse Ox 98 02/11/25 14:17 Oxygen Delivery Method Room Air 02/11/25 14:17 BMI result Body Mass Index 21.7 Const General: comfortable and no acute distress Orientation/consciousness: patient oriented x3 HEENT Head: Yes normocephalic Mouth: Normal oral and palatal mucosa present Eyes EOM: EOMs intact bilaterally Neck Neck: Yes supple Resp Auscultation: clear to auscultation bilaterally Cardio Jugular venous distension: no JVD Rate: regular rate GI Palpation (GI): Soft to palpation Auscultation: normal bowel sounds General: Yes no CVA tenderness Back/Spine/Pelvis Back: no CVA tenderness Skin General skin exam: no rashes or lesions noted Neuro General: patient oriented x3 and moves all extremities Extrem General: Yes no pedal edema Results Reviewed Nephrology Results: Hgb 11.9 g/dl (14.0-18.0) L 05/05/24 WBC 7.2 X10*3/uL (4.8-10.8) 05/05/24 Plt Count 190 X10*3/uL (160-400) 05/05/24 Sodium 143 mmol/L (135-145) 02/09/25 Potassium 4.5 mmol/L (3.3-5.1) 02/09/25 Chloride 117 mmol/L (96-108) H 02/09/25 Carbon Dioxide 20 mmol/L (22-29) L 02/09/25 BUN 30 mg/dL (9-16) H 02/09/25 Creatinine 2.70 mg/dL (0.5-1.4) H 02/09/25 Calcium 8.8 mg/dL (8.4-10.2) 10/27/24 Phosphorus 3.0 mg/dL (2.7-4.5) 05/05/24 PTH Intact 196.4 pg/mL (8.7-77.1) H 10/27/24 Assessment & Plan Assessment & Plan (1) Anemia in chronic kidney disease: Code(s): N18.9 - Chronic kidney disease, unspecified; D63.1 - Anemia in chronic kidney disease Category: Medical Qualifiers: Chronic kidney disease stage: stage 4 (severe) Qualified Code(s): N18.4 - Chronic kidney disease, stage 4 (severe); D63.1 - Anemia in chronic kidney disease (2) Secondary hyperparathyroidism: Code(s): N25.81 - Secondary hyperparathyroidism of renal origin Category: Medical (3) CKD (chronic kidney disease) stage 4, GFR 15-29 ml/min: Code(s): N18.4 - Chronic kidney disease, stage 4 (severe) Category: Medical (4) Hyperkalemia: Code(s): E87.5 - Hyperkalemia Category: Medical (5) Hypertension, essential: Code(s): I10 - Essential (primary) hypertension Category: Medical Plan 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 He is not on any Iker inhibitor due to recurrent FLOR and hyperkalemia in the past. He avoids nonsteroidal anti-inflammatory medications and maintain good hydration. He can continue taking his Kionex 15 g every other day. His ultrasound in the past and been unremarkable. He has tolerated statins. He can continue with nifedipine 60 mg daily. He also can continue on calcitriol 0.25 mcg every other day. Does not need any Procrit now. I may start him on SGLT2 i with time. I did not make any other medication changes today. All his questions and concerns were addressed. Orders: Orders Complete Blood Count Auto Diff 4 Months D63.1 - Anemia in chronic kidney disease, E87.5 - Hyperkalemia, N18.4 - Chronic kidney disease, stage 4 (severe), N25.81 - Secondary hyperparathyroidism of renal origin Creatinine 4 Months D63.1 - Anemia in chronic kidney disease, E87.5 - Hyperkalemia, N18.4 - Chronic kidney disease, stage 4 (severe), N25.81 - Secondary hyperparathyroidism of renal origin Electrolytes 4 Months D63.1 - Anemia in chronic kidney disease, E87.5 - Hyperkalemia, N18.4 - Chronic kidney disease, stage 4 (severe), N25.81 - Secondary hyperparathyroidism of renal origin Calcium 4 Months D63.1 - Anemia in chronic kidney disease, E87.5 - Hyperkalemia, N18.4 - Chronic kidney disease, stage 4 (severe), N25.81 - Secondary hyperparathyroidism of renal origin Parathyroid Hormone Intact 4 Months D63.1 - Anemia in chronic kidney disease, E87.5 - Hyperkalemia, N18.4 - Chronic kidney disease, stage 4 (severe), N25.81 - Secondary hyperparathyroidism of renal origin Blood Urea Nitrogen 4 Months D63.1 - Anemia in chronic kidney disease, E87.5 - Hyperkalemia, N18.4 - Chronic kidney disease, stage 4 (severe), N25.81 - Secondary hyperparathyroidism of renal origin Phosphorus 4 Months D63.1 - Anemia in chronic kidney disease, E87.5 - Hyperkalemia, N18.4 - Chronic kidney disease, stage 4 (severe), N25.81 - Secondary hyperparathyroidism of renal origin Medications: Changed From calcitriol a 0.25 mcg PO Q OTHER DAY To calcitriol a 0.25 mcg PO 3XW 30 days 13 caps 4RF From nifedipine ER 60 mg PO DAILY To nifedipine ER 60 mg PO ONCE 90 tabs 4RF Coding Level of Care Code Est Pt Level 4 (31349) Diagnoses Anemia in stage 4 chronic kidney disease N18.4; D63.1 Chronic kidney disease stage: stage 4 (severe) Secondary hyperparathyroidism N25.81 CKD (chronic kidney disease) stage 4, GFR 15-29 ml/min N18.4 Hyperkalemia E87.5 Hypertension, essential I10
[2025-02-11 14:17] VITALS: BP 132/72; PULSE 93; O2SAT 98; BMI 21.7
== END 2025-02-11 14:45 | disposition home or self-care (01) ==
LOC: HO.HKA 14:15
PROVIDERS: PCP Internal Medicine; Visit Provider Internal Medicine Nephrology
DX: I12.9 Hypertensive chronic kidney disease with stage 1 through stage 4 chronic kidney disease, or unspecified chronic kidney disease (principal); N18.4 Chronic kidney disease, stage 4 (severe); D63.1 Anemia in chronic kidney disease; N25.81 Secondary hyperparathyroidism of renal origin; E87.5 Hyperkalemia
CPT/HCPCS: 99214

== ENCOUNTER → 2025-02-11 14:14 | Outpatient (BNVA) | payer MEDICARE, SELFPAY | PROVIDERS: PCP Internal Medicine; Visit Provider Internal Medicine Nephrology | DX: I12.9 Hypertensive chronic kidney disease with stage 1 through stage 4 chronic kidney disease, or unspecified chronic kidney disease (principal); N18.4 Chronic kidney disease, stage 4 (severe); D63.1 Anemia in chronic kidney disease; N25.81 Secondary hyperparathyroidism of renal origin; E87.5 Hyperkalemia | CPT/HCPCS: 99212 ==

== ENCOUNTER 2025-06-09 13:51 | Outpatient (REF) | payer MEDICARE, SELFPAY ==
[2025-06-09 14:05] LABS: MANUAL DIFF FLAG NO
[2025-06-09 15:01] LABS: Hematocrit 33.3 % (42.0-52.0); Hemoglobin 10.9 g/dl (14.0-18.0); Imm Gran Abs Auto 0.03 X10*3/uL (0.00-0.03); Imm Gran Pct Auto 0.4 % (0.0-0.4); Lymphocytes Absolute Auto 1.4 X10*3/uL (1.2-4.9); Mean Corpuscular HGB Conc 32.7 g/dl (31.0-36.0); Mean Corpuscular Hemoglobin 31.2 pg (27.0-33.0); Mean Corpuscular Volume 95.4 fL (80.0-98.0); NRBC Abs Auto 0.000 X10*3/uL (0.0-0.012); NRBC Pct Auto 0.0 /100WBC (0.0-0.2); Platelet Count 200 X10*3/uL (160-400); Red Blood Count 3.49 X10*6/uL (4.60-5.80); White Blood Count 7.1 X10*3/uL (4.8-10.8)
[2025-06-09 15:09] LABS: Anion Gap 11 (12-20); Blood Urea Nitrogen 30 mg/dL (9-16); Calcium 8.3 mg/dL (8.4-10.2); Carbon Dioxide 19 mmol/L (22-29); Chloride 118 mmol/L (96-108); Estimated Glomerular Filt Rate 21; Potassium 4.3 mmol/L (3.3-5.1); Sodium 144 mmol/L (135-145)
[2025-06-09 15:17] LABS: Parathyroid Hormone Intact 140.8 pg/mL (8.7-77.1)
== END 2025-06-09 13:52 | disposition home or self-care (01) ==
LOC: HO.LAB 13:51
PROVIDERS: PCP Internal Medicine; Visit Provider Internal Medicine Nephrology
DX: N18.4 Chronic kidney disease, stage 4 (severe) (principal); D63.1 Anemia in chronic kidney disease; N25.81 Secondary hyperparathyroidism of renal origin; E87.5 Hyperkalemia
CPT/HCPCS: 36415; 80051; 82310; 82565; 83970; 84100; 84520; 85025

== ENCOUNTER 2025-06-12 11:07 | Outpatient (AMB) | payer MEDICARE, SELFPAY ==
--- NOTE | 2025-06-12 11:33 | HO.NEPHOV_ITS ---
Vital Signs 06/12/25 11:34 Height 5 ft 9 in Weight 150 lb 4 oz BMI 22.2 BP 128/60 Blood Pressure Location Rt brachial Position Sitting Pulse 90 Pulse Source Pulse Oximeter Pulse Oximetry (%) 96 Oxygen Delivery Method Room Air Intake Visit Reasons: -[facility] [employer] D[employer] Required: No Accompanied by: Self / Same As Patient Allergies No Known Allergies Allergy (Verified 06/12/25 11:34) HPI Comments Details: Adalberto in follow-up of his chronic kidney disease, hypertension, proteinuria as well as secondary hyperparathyroidism. He has been compliant with potassium lowering medications. His serum creatinine has been fairly stable. He tries to minimize sodium intake in the diet. His blood pressure has been good at home. He denies any nausea, vomiting, diarrhea, chest pain, shortness of breath, proximal nocturnal dyspnea, orthopnea, pedal edema. He has no urinary symptoms . He has no orthostasis but has been feeling tired. His anemia is marginally worse [facility] Medical History CVA (cerebral vascular accident) Diabetes Renal insufficiency Surgical History H/O eye surgery Family History Father Lung cancer Maternal Grandmother Ovarian cancer Social History Housing: House Alcohol intake: former Patient Tobacco Use Status: Current everyday Tobacco user Tobacco use type: Cigarette e-Cigarette/Vaping Use: Never Used Substance Use Type: Marijuana service: No Current occupational status: retired Cognitive needs: No Hearing needs: No Vision needs: No Review of Systems Const All systems reviewed & are unremarkable except as noted in HPI and below Physical Exam Vital Signs: Last Vital Signs Pulse 90 06/12/25 11:34 BP 128/60 06/12/25 11:34 Pulse Ox 96 06/12/25 11:34 Oxygen Delivery Method Room Air 06/12/25 11:34 BMI result Body Mass Index 22.2 Const General: comfortable and no acute distress Orientation/consciousness: patient oriented x3 HEENT Head: Yes normocephalic Mouth: Normal oral and palatal mucosa present Eyes EOM: EOMs intact bilaterally Neck Neck: Yes supple Resp Auscultation: clear to auscultation bilaterally Cardio Jugular venous distension: no JVD Rate: regular rate GI Palpation (GI): Soft to palpation Auscultation: normal bowel sounds General: Yes no CVA tenderness Back/Spine/Pelvis Back: no CVA tenderness Skin General skin exam: no rashes or lesions noted Neuro General: patient oriented x3 and moves all extremities Extrem General: Yes no pedal edema Results Reviewed Nephrology Results: Hgb, (14.0-18.0) 10.9 g/dl L 06/09/25 WBC, (4.8-10.8) 7.1 X10*3/uL 06/09/25 Plt Count, (160-400) 200 X10*3/uL 06/09/25 Sodium, (135-145) 144 mmol/L 06/09/25 Potassium, (3.3-5.1) 4.3 mmol/L 06/09/25 Chloride, (96-108) 118 mmol/L H 06/09/25 Carbon Dioxide, (22-29) 19 mmol/L L 06/09/25 BUN, (9-16) 30 mg/dL H 06/09/25 Creatinine, (0.5-1.4) 2.91 mg/dL H 06/09/25 Calcium, (8.4-10.2) 8.3 mg/dL L 06/09/25 Phosphorus, (2.7-4.5) 3.3 mg/dL 06/09/25 PTH Intact, (8.7-77.1) 140.8 pg/mL H 06/09/25 Assessment & Plan Assessment & Plan (1) Hypertension, essential: Code(s): I10 - Essential (primary) hypertension Category: Medical (2) Secondary hyperparathyroidism: Code(s): N25.81 - Secondary hyperparathyroidism of renal origin Category: Medical (3) CKD (chronic kidney disease) stage 4, GFR 15-29 ml/min: Code(s): N18.4 - Chronic kidney disease, stage 4 (severe) Category: Medical (4) Diabetic nephropathy: Code(s): E11.21 - Type 2 diabetes mellitus with diabetic nephropathy Category: Medical Qualifiers: Diabetes mellitus type: type 2 Qualified Code(s): E11.21 - Type 2 diabetes mellitus with diabetic nephropathy (5) Anemia in chronic kidney disease: Code(s): N18.9 - Chronic kidney disease, unspecified; D63.1 - Anemia in chronic kidney disease Category: Medical Qualifiers: Chronic kidney disease stage: stage 4 (severe) Qualified Code(s): N18.4 - Chronic kidney disease, stage 4 (severe); D63.1 - Anemia in chronic kidney disease Gurinder Glover 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 He is not on any Iker inhibitor due to recurrent FLOR and hyperkalemia in the past. He avoids nonsteroidal anti-inflammatory medications and maintain good hydration. He can continue taking his Kionex 15 g every other day. His ultrasound in the past and been unremarkable. He has tolerated statins. He can continue with nifedipine 60 mg daily. He also can continue on calcitriol 0.25 mcg every other day. Does not need any Procrit now. He needs colonoscopy ) agreeable now). I did not make any other medication changes today. All his questions and concerns were addre ssed. Orders: Orders Folate 4 Weeks D63.1 - Anemia in chronic kidney disease, E11.21 - Type 2 diabetes mellitus with diabetic nephropathy, I10 - Essential (primary) hypertension, N18.4 - Chronic kidney disease, stage 4 (severe), N25.81 - Secondary hyperparathyroidism of renal origin Ferritin 4 Weeks D63.1 - Anemia in chronic kidney disease, E11.21 - Type 2 diabetes mellitus with diabetic nephropathy, I10 - Essential (primary) hypertension, N18.4 - Chronic kidney disease, stage 4 (severe), N25.81 - Secondary hyperparathyroidism of renal origin Complete Blood Count Auto Diff 4 Weeks D63.1 - Anemia in chronic kidney disease, E11.21 - Type 2 diabetes mellitus with diabetic nephropathy, I10 - Essential (primary) hypertension, N18.4 - Chronic kidney disease, stage 4 (severe), N25.81 - Secondary hyperparathyroidism of renal origin Blood Urea Nitrogen 4 Weeks D63.1 - Anemia in chronic kidney disease, E11.21 - Type 2 diabetes mellitus with diabetic nephropathy, I10 - Essential (primary) hypertension, N18.4 - Chronic kidney disease, stage 4 (severe), N25.81 - Secondary hyperparathyroidism of renal origin Creatinine 4 Weeks D63.1 - Anemia in chronic kidney disease, E11.21 - Type 2 diabetes mellitus with diabetic nephropathy, I10 - Essential (primary) hypertension, N18.4 - Chronic kidney disease, stage 4 (severe), N25.81 - Secondary hyperparathyroidism of renal origin Vitamin B12 4 Weeks D63.1 - Anemia in chronic kidney disease, E11.21 - Type 2 diabetes mellitus with diabetic nephropathy, I10 - Essential (primary) hypertension, N18.4 - Chronic kidney disease, stage 4 (severe), N25.81 - Secondary hyperparathyroidism of renal origin IRON PROFILE 4 Weeks D63.1 - Anemia in chronic kidney disease, E11.21 - Type 2 diabetes mellitus with diabetic nephropathy, I10 - Essential (primary) hypertension, N18.4 - Chronic kidney disease, stage 4 (severe), N25.81 - Secondary hyperparathyroidism of renal origin Electrolytes 4 Weeks D63.1 - Anemia in chronic kidney disease, E11.21 - Type 2 diabetes mellitus with diabetic nephropathy, I10 - Essential (primary) hypertension, N18.4 - Chronic kidney disease, stage 4 (severe), N25.81 - Secondary hyperparathyroidism of renal origin Coding Level of Care Code Est Pt Level 4 (47288) Diagnoses Hypertension, essential I10 Secondary hyperparathyroidism N25.81 CKD (chronic kidney disease) stage 4, GFR 15-29 ml/min N18.4 Diabetic nephropathy associated with type 2 diabetes mellitus E11. Diabetes mellitus type: type 2 Anemia in stage 4 chronic kidney disease N18.4; D63.1 Chronic kidney disease stage: stage 4 (severe)
[2025-06-12 11:34] VITALS: BP 128/60; PULSE 90; O2SAT 96; BMI 22.2
== END 2025-06-12 12:06 | disposition home or self-care (01) ==
LOC: HO.HKA 11:08
PROVIDERS: PCP Internal Medicine; Visit Provider Internal Medicine Nephrology
DX: I12.9 Hypertensive chronic kidney disease with stage 1 through stage 4 chronic kidney disease, or unspecified chronic kidney disease (principal); N25.81 Secondary hyperparathyroidism of renal origin; N18.4 Chronic kidney disease, stage 4 (severe); E11.21 Type 2 diabetes mellitus with diabetic nephropathy; D63.1 Anemia in chronic kidney disease
CPT/HCPCS: 99214

== ENCOUNTER → 2025-06-12 11:07 | Outpatient (BNVA) | payer MEDICARE, SELFPAY | PROVIDERS: PCP Internal Medicine; Visit Provider Internal Medicine Nephrology | DX: E11.22 Type 2 diabetes mellitus with diabetic chronic kidney disease (principal); I12.9 Hypertensive chronic kidney disease with stage 1 through stage 4 chronic kidney disease, or unspecified chronic kidney disease; N18.4 Chronic kidney disease, stage 4 (severe); E11.21 Type 2 diabetes mellitus with diabetic nephropathy; N25.81 Secondary hyperparathyroidism of renal origin; D63.1 Anemia in chronic kidney disease | CPT/HCPCS: 99212 ==

== ENCOUNTER 2025-07-22 14:59 | Outpatient (REF) | payer MEDICARE, SELFPAY ==
[2025-07-22 15:18] LABS: MANUAL DIFF FLAG NO
[2025-07-22 15:31] LABS: Hematocrit 33.4 % (42.0-52.0); Hemoglobin 11.1 g/dl (14.0-18.0); Imm Gran Abs Auto 0.02 X10*3/uL (0.00-0.03); Imm Gran Pct Auto 0.3 % (0.0-0.4); Lymphocytes Absolute Auto 1.7 X10*3/uL (1.2-4.9); Mean Corpuscular HGB Conc 33.2 g/dl (31.0-36.0); Mean Corpuscular Hemoglobin 31.4 pg (27.0-33.0); Mean Corpuscular Volume 94.4 fL (80.0-98.0); NRBC Abs Auto 0.000 X10*3/uL (0.0-0.012); NRBC Pct Auto 0.0 /100WBC (0.0-0.2); Platelet Count 173 X10*3/uL (160-400); Red Blood Count 3.54 X10*6/uL (4.60-5.80); White Blood Count 7.7 X10*3/uL (4.8-10.8)
[2025-07-22 16:10] LABS: Anion Gap 12 (12-20); Blood Urea Nitrogen 38 mg/dL (9-16); Carbon Dioxide 19 mmol/L (22-29); Chloride 116 mmol/L (96-108); Estimated Glomerular Filt Rate 22; Iron 74 mcg/dL (45-160); Percent Iron Saturation 41 % (15-50); Potassium 4.1 mmol/L (3.3-5.1); Sodium 143 mmol/L (135-145); Total Iron Binding Capacity 179 mcg/dL (228-428); Unsaturated Iron Binding 105 ug/dL
[2025-07-22 16:32] LABS: Ferritin 553 ng/mL (20-250)
[2025-07-22 16:41] LABS: Folate 4.2 ng/mL (> or = 4.0); Vitamin B12 > 2000 pg/mL (200-900)
--- OUTSIDE RECORDS SUMMARY | 2025-07-22 17:10 | XMS_ITS | Clinical Summary ---
Author Organization [facility] Address [address] [facility] [address] [place] [address] Phone Care Team Providers Care Dispatcher Motor Vehicle Name Role Phone Luz Davenport MD Primary Care Provider [phone] Allergies No known active allergies Medications ketorolac (ACULAR) 0.5 % ophthalmic solution INSTILL 1 DROP INTO BOTH EYES THREE TIMES A DAY 1 Active cyanocobalamin (VITAMIN B-12) 1000 MCG tablet Take 100 mcg by mouth 1 (one) time each day Active sodium polystyrene sulfonate (KAYEXALATE) powder TAKE 30 GRAMS BY MOUTH 1 TIME PER WEEK 454 g 3 3 Active cholecalciferol (VITAMIN D-3) 25 MCG (1000 UT) capsule Take 1,000 Units by mouth 1 (one) time each day Active NIFEdipine CC (ADALAT CC) 60 MG 24 hr tablet Take 60 mg by mouth 1 (one) time each day before breakfast Do not crush, chew, or split. Active Hospital, Clinic, or Other Facility Administered Medication Ordered Dose Route Frequency Start Date End Date Status Epoetin Jameson-epbx solution 10,000 UnitsIndications:Anemia in chronic kidney disease 01679 Units IJ Once 10/20/2021 A ctive Active Problems Problem Noted Date Diagnosed Date Anemia in chronic kidney disease 12/20/2022 Hypertension 08/24/2021 Vitamin D deficiency, not otherwise specified Secondary hyperparathyroidism of renal origin Acute nontraumatic kidney injury 02/23/2021 Cerebrovascular accident 02/23/2021 Stage 3b chronic kidney disease 02/23/2021 Diabetes mellitus 02/23/2021 Hyperkalemia 02/23/2021 Hypertensive disorder 02/23/2021 Proteinuria 02/23/2021 Renal disorder due to type 2 diabetes mellitus 0 02/23/2021 Chronic kidney disease, stage 4 (severe) 021 Family History Relation Status Comments Father Mother Alive Social History Tobacco Use Types Packs/Day Years Used Date Smoking Tobacco: Every Day Cigarettes Smokeless Tobacco: Never Tobacco Cessation:Ready to Q uit: Not Asked; Counseling Given: Not Answered Alcohol Use Standard Drinks/Week Comments No 0 (1 standard drink = 0.6 oz pur e alcohol) Sex and Gender Information Value Date Recorded Sex Assigned at Not on file Legal Sex Male 4:51 PM EST Gender Identity Not on file Sexual Orientation Not on file Last Filed Vital Signs Vital Sign Reading Time Taken Comments Blood Pressure 150/80 07/03/2023 2:37 PM EDT Pulse 87 07/03/2023 2:37 PM EDT Temperature - - Respiratory Rate 20 10/03/2022 3:38 PM EST Oxygen Saturation 98% 10/03/2022 3:38 PM EST Inhaled Oxygen Concentration - - Weight 68.5 kg (151 lb) 07/03/2023 2:37 PM EDT Height 175.3 cm (5' 9 ) 11/24/2020 12:00 PM EST Body Mass Index 22.3 11/24/2020 12:00 PM EST Plan of Treatment Health Maintenance Due Date Last Done Comments Pneumococcal Vaccine: 50+ Years (1 of 2 - PCV) 1972 Colorectal Cancer Screening: Annual FOBT 2002 Colorectal Cancer Screening: Colonoscopy 2002 Colorectal Cancer Screening: Sigmoidoscopy 2002 Diabetes: Hemoglobin A1C 12/17/2020 020, 01/08/2020 Diabetes: Ophthalmology Exam 12/17/2020 Diabetes: Pedal Pulse Checked 12/17/2020 Diabetes: Sensory Foot Exam 12/17/2020 Diabetes: Visual Foot Exam 12/17/2020 Influenza Vaccine (#1) 2025 Hepatitis B Vaccine Aged Out No longe r eligible based on patient's age to complete this topic Procedures Procedure Name Priority Date/Time Associated Diagnosis Comments BLOOD PANEL (HC) Routine 07/16/2020 12:0 0 AM EDT from Last 3 Months or Most Recently Relevant to Health Maintenance Results * (ABNORMAL) Blood Panel (07/16/2020 12:00 AM EDT) Creatinine 3.43(H) 0.70 - 1.30 mg/dl PVNMA Calcium 8.0(L) 8.4 - 10.2 mg/dl PVNMA BUN 27(H) 9 - 20 mg/dl PVNMA eGFR Non- 18(L) >60 ml/min PVNMA Sodium 138 137 - 145 mmol/L PVNMA Potassium 4.9 3.5 - 5.1 mmol/L PVNMA Carbon Dioxide (CO2) 19(L) 22 - 30 mmol/L PVNMA Hemoglobin A1C 6.0(H) <5 % PVNMA 07/16/2020 us [facility] [id number] LICITED RESULTS Final Result PVNMA from Last 3 Months or Most Recently Relevant to Health Maintenance Care Teams Dispatcher Motor Vehicle Relationship Specialty Start Date End Date Luz Davenport MD [address] [place] [id number] PCP - General 11/29/20
== END 2025-07-22 15:00 | disposition home or self-care (01) ==
LOC: HO.LAB 14:59
PROVIDERS: PCP Internal Medicine; Visit Provider Internal Medicine Nephrology
DX: I12.9 Hypertensive chronic kidney disease with stage 1 through stage 4 chronic kidney disease, or unspecified chronic kidney disease (principal); E11.22 Type 2 diabetes mellitus with diabetic chronic kidney disease; D63.1 Anemia in chronic kidney disease; N18.4 Chronic kidney disease, stage 4 (severe); N25.81 Secondary hyperparathyroidism of renal origin
CPT/HCPCS: 36415; 80051; 82565; 82607; 82728; 82746; 83540; 84520; 85025

== ENCOUNTER 2025-07-24 14:41 | Outpatient (AMB) | payer MEDICARE, SELFPAY ==
--- NOTE | 2025-07-24 14:45 | HO.NEPHOV_ITS ---
Vital Signs 07/24/25 14:46 Height 5 ft 9 in Weight 151 lb 8 oz BMI 22.4 BP 160/70 H Blood Pressure Location Rt brachial Position Sitting Pulse 81 Pulse Source Pulse Oximeter Pulse Oximetry (%) 99 Oxygen Delivery Method Room Air Intake Visit Reasons: 6wks f/u w/labs-# Not Working Horticultural Technical Officer Required: No Accompanied by: Self / Same As Patient Allergies No Known Allergies Allergy (Verified 07/24/25 14:46) HPI Comments Details: Adalberto in follow-up of his chronic kidney disease, hypertension, proteinuria as well as secondary hyperparathyroidism. He has been compliant with potassium lowering medications. His serum creatinine has been fairly stable. He tries to minimize sodium intake in the diet. His blood pressure has been good at home. He denies any nausea, vomiting, diarrhea, chest pain, shortness of breath, proximal nocturnal dyspnea, orthopnea, pedal edema. He has no urinary symptoms . He has no orthostasis but has been feeling tired. His anemia is marginally worse [facility] Medical History CVA (cerebral vascular accident) Diabetes Renal insufficiency Surgical History H/O eye surgery Family History Father Lung cancer Maternal Grandmother Ovarian cancer Social History Housing: House Alcohol intake: former Patient Tobacco Use Status: Current everyday Tobacco user Tobacco use type: Cigarette e-Cigarette/Vaping Use: Never Used Substance Use Type: Marijuana service: No Current occupational status: retired Cognitive needs: No Hearing needs: No Vision needs: No Review of Systems Const All systems reviewed & are unremarkable except as noted in HPI and below Physical Exam Vital Signs: Last Vital Signs Pulse 81 07/24/25 14:46 BP 160/70 H 07/24/25 14:46 Pulse Ox 99 07/24/25 14:46 Oxygen Delivery Method Room Air 07/24/25 14:46 BMI result Body Mass Index 22.4 Const General: comfortable and no acute distress Orientation/consciousness: patient oriented x3 HEENT Head: Yes normocephalic Mouth: Normal oral and palatal mucosa present Eyes EOM: EOMs intact bilaterally Neck Neck: Yes supple Resp Auscultation: clear to auscultation bilaterally Cardio Jugular venous distension: no JVD Rate: regular rate GI Palpation (GI): Soft to palpation Auscultation: normal bowel sounds General: Yes no CVA tenderness Back/Spine/Pelvis Back: no CVA tenderness Skin General skin exam: no rashes or lesions noted Neuro General: patient oriented x3 and moves all extremities Extrem General: Yes no pedal edema Results Reviewed Nephrology Results: Hgb, (14.0-18.0) 11.1 g/dl L 07/22/25 WBC, (4.8-10.8) 7.7 X10*3/uL 07/22/25 Plt Count, (160-400) 173 X10*3/uL 07/22/25 Sodium, (135-145) 143 mmol/L 07/22/25 Potassium, (3.3-5.1) 4.1 mmol/L 07/22/25 Chloride, (96-108) 116 mmol/L H 07/22/25 Carbon Dioxide, (22-29) 19 mmol/L L 07/22/25 BUN, (9-16) 38 mg/dL H 07/22/25 Creatinine, (0.5-1.4) 2.82 mg/dL H 07/22/25 Calcium, (8.4-10.2) 8.3 mg/dL L 06/09/25 Phosphorus, (2.7-4.5) 3.3 mg/dL 06/09/25 PTH Intact, (8.7-77.1) 140.8 pg/mL H 06/09/25 Assessment & Plan Assessment & Plan (1) Hypertension, essential: Code(s): I10 - Essential (primary) hypertension Category: Medical (2) Secondary hyperparathyroidism: Code(s): N25.81 - Secondary hyperparathyroidism of renal origin Category: Medical (3) Diabetic nephropathy: Code(s): E11.21 - Type 2 diabetes mellitus with diabetic nephropathy Category: Medical Qualifiers: Diabetes mellitus type: type 2 Qualified Code(s): E11.21 - Type 2 diabetes mellitus with diabetic nephropathy (4) CKD (chronic kidney disease) stage 4, GFR 15-29 ml/min: Code(s): N18.4 - Chronic kidney disease, stage 4 (severe) Category: Medical (5) Anemia in chronic kidney disease: Code(s): N18.9 - Chronic kidney disease, unspecified; D63.1 - Anemia in chronic kidney disease Category: Medical Qualifiers: Chronic kidney disease stage: stage 4 (severe) Qualified Code(s): N18.4 - Chronic kidney disease, stage 4 (severe); D63.1 - Anemia in chronic kidney disease Plan 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 He is not on any Iker inhibitor due to recurrent FLOR and hyperkalemia in the past. He avoids nonsteroidal anti-inflammatory medications and maintain good hydration. He can continue taking his Kionex 15 g every other day. His ultrasound in the past and been unremarkable. He has tolerated statins. I increased his nifedipine to 90 mg daily. He also can continue on calcitriol 0.25 mcg every other day. Does not need any Procrit now. He needs colonoscopy( agreeable now). I did not make any other medication changes today. All his questions and concerns were addressed. Orders: Orders Electrolytes Today E11.21 - Type 2 diabetes mellitus with diabetic nephropathy, I10 - Essential (primary) hypertension, N18.4 - Chronic kidney disease, stage 4 (severe), N25.81 - Secondary hyperparathyroidism of renal origin Calcium Today E11.21 - Type 2 diabetes mellitus with diabetic nephropathy, I10 - Essential (primary) hypertension, N18.4 - Chronic kidney disease, stage 4 (severe), N25.81 - Secondary hyperparathyroidism of renal origin Creatinine Today E11.21 - Type 2 diabetes mellitus with diabetic nephropathy, I10 - Essential (primary) hypertension, N18.4 - Chronic kidney disease, stage 4 (severe), N25.81 - Secondary hyperparathyroidism of renal origin Blood Urea Nitrogen Today E11.21 - Type 2 diabetes mellitus with diabetic nephropathy, I10 - Essential (primary) hypertension, N18.4 - Chronic kidney disease, stage 4 (severe), N25.81 - Secondary hyperparathyroidism of renal origin Referrals Gastroenterology Referral D63.1 - Anemia in chronic kidney disease, N18.4 - Chronic kidney disease, stage 4 (severe) Medications: Changed From nifedipine ER 60 mg PO DAILY 90 tabs 4RF To nifedipine ER 90 mg PO DAILY 90 tabs 4RF 90 days Refilled calcitriol a 0.25 mcg PO 3XW 13 caps 4RF 30 days Coding Level of Care Code Est Pt Level 4 (90913) Diagnoses Hypertension, essential I10 Secondary hyperparathyroidism N25.81 Diabetic nephropathy associated with type 2 diabetes mellitus E11.21 Diabetes mellitus type: type 2 CKD (chronic kidney disease) stage 4, GFR 15-29 ml/min N18.4 Anemia in stage 4 chronic kidney disease N18.4; D63.1 Chronic kidney disease stage: stage 4 (severe)
[2025-07-24 14:46] VITALS: BP 160/70; PULSE 81; O2SAT 99; BMI 22.4
--- OUTSIDE RECORDS SUMMARY | 2025-07-24 14:54 | XMS_ITS | Clinical Summary ---
Author Organization [facility] Address [address] [facility] [address] [place] [address] Phone Care Team Providers Care Tapper Shank Name Role Phone Luz Davenport MD Primary Care Provider [phone] Allergies No known active allergies Medications ketorolac [...] solution 10,000 UnitsIndications:Anemia in chronic kidney disease 38580 Units IJ Once 10/20/2021 A ctive Active [...] % PVNMA 07/16/2020 us [facility] [id number] LICITED RESULTS Final Result PVNMA from Last 3 Months or Most Recently Relevant to Health Maintenance Care Teams Tapper Shank Relationship Specialty Start Date End Date Luz Davenport MD [address] [place] [id number] PCP - General 11/29/20
== END 2025-07-24 15:09 | disposition home or self-care (01) ==
LOC: HO.HKA 14:41
PROVIDERS: PCP Internal Medicine; Visit Provider Internal Medicine Nephrology
DX: I12.9 Hypertensive chronic kidney disease with stage 1 through stage 4 chronic kidney disease, or unspecified chronic kidney disease (principal); N25.81 Secondary hyperparathyroidism of renal origin; E11.21 Type 2 diabetes mellitus with diabetic nephropathy; N18.4 Chronic kidney disease, stage 4 (severe); D63.1 Anemia in chronic kidney disease
CPT/HCPCS: 99214

== ENCOUNTER → 2025-07-24 14:41 | Outpatient (BNVA) | payer MEDICARE, SELFPAY | PROVIDERS: PCP Internal Medicine; Visit Provider Internal Medicine Nephrology | DX: E11.21 Type 2 diabetes mellitus with diabetic nephropathy (principal); N25.81 Secondary hyperparathyroidism of renal origin; N18.4 Chronic kidney disease, stage 4 (severe); I10 Essential (primary) hypertension | CPT/HCPCS: 99212 ==

== ENCOUNTER 2025-10-20 15:41 | Outpatient (REF) | payer MEDICARE, SELFPAY ==
[2025-10-20 16:27] LABS: Anion Gap 15 (12-20); Blood Urea Nitrogen 37 mg/dL (9-16); Calcium 9.3 mg/dL (8.4-10.2); Carbon Dioxide 22 mmol/L (22-29); Chloride 111 mmol/L (96-108); Estimated Glomerular Filt Rate 19; Potassium 4.4 mmol/L (3.3-5.1); Sodium 144 mmol/L (135-145)
== END 2025-10-20 15:42 | disposition home or self-care (01) ==
LOC: HO.LAB 15:41
PROVIDERS: PCP Internal Medicine; Visit Provider Internal Medicine Nephrology
DX: I12.9 Hypertensive chronic kidney disease with stage 1 through stage 4 chronic kidney disease, or unspecified chronic kidney disease (principal); N18.4 Chronic kidney disease, stage 4 (severe); E11.22 Type 2 diabetes mellitus with diabetic chronic kidney disease; E11.21 Type 2 diabetes mellitus with diabetic nephropathy; N25.81 Secondary hyperparathyroidism of renal origin
CPT/HCPCS: 36415; 80051; 82310; 82565; 84520

== ENCOUNTER 2025-10-23 14:55 | Outpatient (AMB) | payer MEDICARE, SELFPAY ==
--- NOTE | 2025-10-23 15:07 | HO.NEPHOV ---
Vital Signs 10/23/25 15:16 Height 5 ft 9 in Weight 146 lb BMI 21.6 BP 140/70 H Blood Pressure Location Rt brachial Position Sitting Pulse 96 Pulse Source Pulse Oximeter Pulse Oximetry (%) 98 Oxygen Delivery Method Room Air Intake Visit Reasons: 3mon f/u w/labs-Conf Hearing Officer Required: No Accompanied by: Self / Same As Patient Allergies No Known Allergies Allergy (Verified 10/23/25 15:16) HPI Comments Details: Adalberto was seen in follow-up of his chronic kidney disease, hypertension, proteinuria as well as secondary hyperparathyroidism. He has been compliant with potassium lowering medications. His serum creatinine has been fairly stable. He tries to minimize sodium intake in the diet. His blood pressure has been good at home. He denies any nausea, vomiting, diarrhea, chest pain, shortness of breath, proximal nocturnal dyspnea, orthopnea, pedal edema. He has no urinary symptoms. [facility] Medical History CVA (cerebral vascular accident) Diabetes Renal insufficiency Surgical History H/O eye surgery Family History Father Lung cancer Maternal Grandmother Ovarian cancer Social History Housing: House Alcohol intake: former Patient Tobacco Use Status: Current everyday Tobacco user Tobacco use type: Cigarette e-Cigarette/Vaping Use: Never Used Substance Use Type: Marijuana service: No Current occupational status: retired Cognitive needs: No Hearing needs: No Vision needs: No Review of Systems Const All systems reviewed & are unremarkable except as noted in HPI and below Physical Exam Const General: comfortable and no acute distress Orientation/consciousness: patient oriented x3 HEENT Head: Yes normocephalic Mouth: Normal oral and palatal mucosa present Eyes EOM: EOMs intact bilaterally Neck Neck: Yes supple Resp Auscultation: clear to auscultation bilaterally Cardio Jugular venous distension: no JVD Rate: regular rate GI Palpation (GI): Soft to palpation Auscultation: normal bowel sounds General: Yes no CVA tenderness Back/Spine/Pelvis Back: no CVA tenderness Skin General skin exam: no rashes or lesions noted Neuro General: patient oriented x3 and moves all extremities Extrem General: Yes no pedal edema Results Reviewed Nephrology Results: Hgb, (14.0-18.0) 11.1 g/dl L 07/22/25 WBC, (4.8-10.8) 7.7 X10*3/uL 07/22/25 Plt Count, (160-400) 173 X10*3/uL 07/22/25 Sodium, (135-145) 144 mmol/L 10/20/25 Potassium, (3.3-5.1) 4.4 mmol/L 10/20/25 Chloride, (96-108) 111 mmol/L H 10/20/25 Carbon Dioxide, (22-29) 22 mmol/L 10/20/25 BUN, (9-16) 37 mg/dL H 10/20/25 Creatinine, (0.5-1.4) 3.21 mg/dL H 10/20/25 Calcium, (8.4-10.2) 9.3 mg/dL Δ 10/20/25 Phosphorus, (2.7-4.5) 3.3 mg/dL 06/09/25 PTH Intact, (8.7-77.1) 140.8 pg/mL H 06/09/25 Assessment & Plan Assessment & Plan (1) Hypertension, essential: Code(s): I10 - Essential (primary) hypertension Category: Medical (2) Secondary hyperparathyroidism: Code(s): N25.81 - Secondary hyperparathyroidism of renal origin Category: Medical (3) CKD (chronic kidney disease) stage 4, GFR 15-29 ml/min: Code(s): N18.4 - Chronic kidney disease, stage 4 (severe) Category: Medical (4) Anemia in chronic kidney disease: Code(s): N18.9 - Chronic kidney disease, unspecified; D63.1 - Anemia in chronic kidney disease Category: Medical Qualifiers: Chronic kidney disease stage: stage 4 (severe) Qualified Code(s): N18.4 - Chronic kidney disease, stage 4 (severe); D63.1 - Anemia in chronic kidney disease Plan 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 He is not on any Iker inhibitor due to recurrent FLOR and hyperkalemia in the past. He avoids nonsteroidal anti-inflammatory medications and maintain good hydration. He can continue taking his Kionex 15 g every other day. His ultrasound in the past and been unremarkable. He has tolerated statins. He also can continue on calcitriol 0.25 mcg every other day. Does not need any Procrit now. He needs colonoscopy( agreeable now). I did not make any other medication changes today. All his questions and concerns were addressed. Orders: Orders Vitamin D 25-OH Total 3 Months I10 - Essential (primary) hypertension, N18.4 - Chronic kidney disease, stage 4 (severe), N25.81 - Secondary hyperparathyroidism of renal origin Electrolytes 3 Months I10 - Essential (primary) hypertension, N18.4 - Chronic kidney disease, stage 4 (severe), N25.81 - Secondary hyperparathyroidism of renal origin Calcium 3 Months I10 - Essential (primary) hypertension, N18.4 - Chronic kidney disease, stage 4 (severe), N25.81 - Secondary hyperparathyroidism of renal origin Blood Urea Nitrogen 3 Months I10 - Essential (primary) hypertension, N18.4 - Chronic kidney disease, stage 4 (severe), N25.81 - Secondary hyperparathyroidism of renal origin Complete Blood Count Auto Diff 3 Months I10 - Essential (primary) hypertension, N18.4 - Chronic kidney disease, stage 4 (severe), N25.81 - Secondary hyperparathyroidism of renal origin Parathyroid Hormone Intact 3 Months I10 - Essential (primary) hypertension, N18.4 - Chronic kidney disease, stage 4 (severe), N25.81 - Secondary hyperparathyroidism of renal origin Phosphorus 3 Months I10 - Essential (primary) hypertension, N18.4 - Chronic kidney disease, stage 4 (severe), N25.81 - Secondary hyperparathyroidism of renal origin Creatinine 3 Months I10 - Essential (primary) hypertension, N18.4 - Chronic kidney disease, stage 4 (severe), N25.81 - Secondary hyperparathyroidism of renal origin Coding Level of Care Code Est Pt Level 4 (40903) Diagnoses Hypertension, essential I10 Secondary hyperparathyroidism N25.81 CKD (chronic kidney disease) stage 4, GFR 15-29 ml/min N18.4 Anemia in stage 4 chronic kidney disease N18.4; D63.1 Chronic kidney disease stage: stage 4 (severe)
[2025-10-23 15:16] VITALS: BP 140/70; PULSE 96; O2SAT 98; BMI 21.6
--- OUTSIDE RECORDS SUMMARY | 2025-10-23 18:59 | XMS_ITS | Clinical Summary ---
Author Organization [facility] Address [address] [facility] [address] [place] [address] Phone Care Team Providers Care Tip Finisher Name Role Phone uLz Davenport MD Primary Care Provider [phone] Allergies No known active allergies Medications ketorolac [...] solution 10,000 UnitsIndications:Anemia in chronic kidney disease 31119 Units IJ Once 10/20/2021 A ctive Active [...] % PVNMA 07/16/2020 us [facility] Conversion LAB [id number] LICITED RESULTS Final Result PVNMA from Last 3 Months or Most Recently Relevant to Health Maintenance Care Teams Tip Finisher Relationship Specialty Start Date End Date Luz Davenport MD [address] [place] [id number] PCP - General 11/29/20
== END 2025-10-23 15:35 | disposition home or self-care (01) ==
LOC: HO.HKA 14:55
PROVIDERS: PCP Internal Medicine; Visit Provider Internal Medicine Nephrology
DX: I12.9 Hypertensive chronic kidney disease with stage 1 through stage 4 chronic kidney disease, or unspecified chronic kidney disease (principal); N25.81 Secondary hyperparathyroidism of renal origin; N18.4 Chronic kidney disease, stage 4 (severe); D63.1 Anemia in chronic kidney disease
CPT/HCPCS: 99214

== ENCOUNTER → 2025-10-23 14:55 | Outpatient (BNVA) | payer MEDICARE, SELFPAY | PROVIDERS: PCP Internal Medicine; Visit Provider Internal Medicine Nephrology | DX: I12.9 Hypertensive chronic kidney disease with stage 1 through stage 4 chronic kidney disease, or unspecified chronic kidney disease (principal); N18.4 Chronic kidney disease, stage 4 (severe); E11.22 Type 2 diabetes mellitus with diabetic chronic kidney disease; D63.1 Anemia in chronic kidney disease; F17.210 Nicotine dependence, cigarettes, uncomplicated; N25.81 Secondary hyperparathyroidism of renal origin; Z79.899 Other long term (current) drug therapy | CPT/HCPCS: 99212 ==

== ENCOUNTER 2025-11-16 13:04 | Outpatient (REF) | payer MEDICARE, SELFPAY ==
--- NOTE | ~2025-11-16 | XR_ITS ---
EXAMINATION: XR CHEST CLINICAL INFORMATION: Z72.0 - Tobacco use COMPARISON: 09/13/2017. TECHNIQUE: 2 views of the chest were obtained. FINDINGS: The cardiac, hilar, and mediastinal contours are normal. The lungs are clear bilaterally. There is no pneumothorax or pleural effusion. There is no focal osseous or soft tissue abnormality. There are degenerative changes throughout the spine. XR/XR chest 2V IMPRESSION: No active pulmonary disease. Electronically signed by: Quinn Welch MD 11/16/2025 02:40 PM EST
== END 2025-11-16 13:05 | disposition home or self-care (01) ==
LOC: HO.XRAY 13:04
PROVIDERS: PCP Internal Medicine; Visit Provider Internal Medicine
DX: N18.4 Chronic kidney disease, stage 4 (severe) (principal); D63.1 Anemia in chronic kidney disease; Z72.0 Tobacco use
CPT/HCPCS: 71046; 99202

== ENCOUNTER 2025-11-16 13:04 | Outpatient (AMB) | payer MEDICARE, SELFPAY ==
--- NOTE | 2025-11-16 13:07 | A.OFFVIS_ITS ---
Vital Signs 11/16/25 13:09 Height 5 ft 9 in Weight 145 lb 8.081 oz BMI 21.5 BP 129/65 Blood Pressure Location Lt brachial Position Sitting Pulse 105 H Intake Visit Reasons: Chronic kidney disease, stage 4 (severe) , Anemia Intake Note: Adalberto presents in the office as a new patient for a chronic kidney disease. CC: He states that he is having anxiety uncertainty to what is going on. Neurocritical Care Physician Required: No Allergies No Known Allergies Allergy (Verified 11/16/25 13:11) HPI Comments Details: 70 y.o M with PMH of CVA, DM, nicotine use, who is here to establish care for anemia. Pt referred by Nephrology. Reports intermittent heartburn but otherwise no abd pain, N,V, dysphagia, change in bowel habits. Labs reviewed, has non-iron deficiency anemia. Has never had a colo. No fam hx of CRC that he is aware of. Pt also reports smokes - rolls his own cigarettes. Goes through 1 pound of tobacco in 45 days, i.e estimated use of 10g tobacco /day. He also has not been seen by his PCP in 2 years. Was unsure if his new insurance will cover this same PCP practice. [facility] Medical History Diabetes Renal insufficiency CVA (cerebral vascular accident) Surgical History H/O eye surgery Family History Father Lung cancer Maternal Grandmother Ovarian cancer Social History Housing: House Alcohol intake: former Patient Tobacco Use Status: Current everyday Tobacco user Tobacco use type: Cigarette e-Cigarette/Vaping Use: Never Used Substance Use Type: Marijuana service: No Current occupational status: retired Cognitive needs: No Hearing needs: No Vision needs: No Review of Systems Const All systems reviewed & are unremarkable except as noted in HPI and below Physical Exam Exam Exam: elderly gent NAD somewhat disheveled abd soft nondistended A/Ox3 Vital Signs: Last Vital Signs Pulse 105 H 11/16/25 13:09 BP 129/65 11/16/25 13:09 BMI result Body Mass Index 21.5 Assessment & Plan Assessment & Plan (1) Anemia: Code(s): D64.9 - Anemia, unspecified Category: Medical (2) Tobacco use: Code(s): Z72.0 - Tobacco use Category: Social Hx Plan Reviewed with the pt that anemia is non iron deficiency and likely related to AoCD however will proceed with EGD/colo for evaluation. Pt aware that he will need to follow up with PCP for pre-procedure EKG. A CXR has also been ordered. Plan: - PEG prep Rxed - reviewed with pt that low vol phosphate based preps such as sutab or suprep not recommended with CKD - - Instructions handed out as well - EGD/colo to be booked - PCP clearance as above Follow up after procedures Orders: Referrals GI Procedure Notification D64.9 - Anemia, unspecified Medications: New peg 3350-electrolytes 236-22.74-6.74 -5.86 gram (Golytely) as per split prep instructions, until fecal effluent is clear 240 mL PO Q10M 4,000 mL 0RF colonoscopy Coding Level of Care Code New Pt Level 4 (00851) Diagnoses Anemia D64.9 Tobacco use Z72.0
[2025-11-16 13:09] VITALS: BP 129/65; PULSE 105; BMI 21.5
--- OUTSIDE RECORDS SUMMARY | 2025-11-16 15:00 | XMS_ITS | Clinical Summary ---
Author Organization [facility] Address [address] [facility] [address] [place] [address] Phone Care Team Providers Care Manager Knowledge Name Role Phone Luz Davenport MD Primary Care Provider [phone] Allergies No known active allergies Medications ketorolac [...] solution 10,000 UnitsIndications:Anemia in chronic kidney disease 31589 Units IJ Once 10/20/2021 A ctive Active [...] % PVNMA 07/16/2020 us Rtama Conversion LAB [id number] LICITED RESULTS Final Result PVNMA from Last 3 Months or Most Recently Relevant to Health Maintenance Care Teams Manager Knowledge Relationship Specialty Start Date End Date Luz Davenport MD [address] [place] [id number] PCP - General 11/29/20
== END 2025-11-16 14:02 | disposition home or self-care (01) ==
LOC: HO.HGI 13:05
PROVIDERS: PCP Internal Medicine; Visit Provider Internal Medicine
DX: D64.9 Anemia, unspecified (principal); Z72.0 Tobacco use
CPT/HCPCS: 99204

== ENCOUNTER → 2025-11-16 14:12 | Outpatient (BNV) | payer MEDICARE, SELFPAY | PROVIDERS: PCP Internal Medicine; Visit Provider Radiology Diagnostic Radiology | DX: Z72.0 Tobacco use (principal) | CPT/HCPCS: 71046 ==